=== PATIENT | male | born 1985 | race Caucasian/White ===

== ENCOUNTER 2017-07-24 22:51 | Inpatient (IN) | payer MEDICARE, MEDICAID ==
[2017-07-25 01:07] LABS: #Eosinphils 0.1 thou/uL (0.0-0.7); #Lymphocytes 0.8 thou/uL (1.20-3.40); #Monocytes 0.4 thou/uL (0.11-0.59); #Neutrophils 3.1 thou/uL (1.40-6.50); %Basophils 0.4 % (0.0-1.0); %Eosinophils 1.9 % (0.0-10.0); %Lymphocytes 17.9 % (21.0-51.0); %Monocytes 9.2 % (0.0-10.0); %Neutrophils 70.6 % (42.0-75.0); Hemoglobin 7.4 g/dL (14.0-18.0); Mean Corpuscular HGB CONC 32.8 g/dL (32.0-36.0); Mean Corpuscular Hemoglobin 31.7 pg (27.0-31.0); Mean Corpuscular Volume 96.9 fl (80.0-94.0); Mean Platelet Volume 7.3 fL (7.4-10.4); Platelet Count 193 thou/uL (130-400); RBC Distribution Width 15.4 % (11.5-14.5); Red Blood Cell (RBC) Count 2.33 mill/uL (4.70-6.10); White Blood Cell (WBC) Count 4.4 thou/uL (4.8-10.8)
[2017-07-25 01:28] LABS: ALT (SGPT) 23 U/L (8-55); AST (SGOT) 19 U/L (5-34); Albumin 3.2 g/dL (3.5-5.0); Alkaline Phosphatase 57 U/L (40-150); Anion Gap 7 mmol/L (10-20); BUN (Urea Nitrogen) 21 mg/dL (8.9-20.6); Bilirubin, Total 0.6 mg/dL (0.2-1.2); Calc. Creatinine Clearance 0 mL/min (70-130); Calcium 8.2 mg/dL (7.8-10.44); Carbon Dioxide 37 mmol/L (22-29); Chloride 99 mmol/L (98-107); Estimated GFR-MDRD 17; Globulin 3.5 g/dL (2.4-3.5); Glucose 98 mg/dL (70-105); Potassium 3.6 mmol/L (3.5-5.1); Protein, Total 6.7 g/dL (6.0-8.3); Sodium 139 mmol/L (136-145)
[2017-07-25] MEDS ORDERED: Gentamicin Sulfate 80 MG in Premix Bag 1 BAG IVPB SCH (07:30)
--- NOTE | 2017-07-25 08:00 | HP ---
HISTORY OF PRESENT ILLNESS: Liam Carrillo is a 31-year-old male patient, end-stage renal disease wi th lymphedema praecox, chronic lymphedema of both lower extremities, scrotum. I provided a right Cim katiuska fistula years ago functions for dialysis access. He is followed by Dr. Bonner. He was recently hos pitalized at [facility], discharged 9 days ago, hospitalized there 1 week for damion teremia Streptococcus. The patient states the source he was informed was his left lower extremity th at he injured on ileana stand working on an automobile. This is markedly improved. He is receiving md ncomycin with dialysis for the next few weeks. The patient presents to the emergency room because of complaints of right upper quadrant pain. He tay s never had such pain before. Pain started 2 days ago. He has not had any nausea or vomiting. CAT scan of abdomen and pelvis obtained revealed some mild to moderate constipation, but findings were th at of some questionable air focus in the scrotum. My personal view of the CAT scan reveals that thes e air pockets are from skin folds. Clinically, exam there is no evidence of necrotizing fasciitis. The patient has no scrotal complaints. He has chronic edema from his lymphedema in his scrotum, but there are no clinical changes per the patient nor per my exam. The patient's gallbladder is normal o n CAT scan, his liver function tests are normal. Patient's lactate is normal. My plan is to obtain a gallbladder ultrasound, give him MiraLax. Apparently he has been admitted to the medical service for pneumonia, although the patient states he has had a mild cough, but nonproduc tive. ALLERGIES: PENICILLIN. MEDICATIONS: Hydrocodone 10/325 p.r.n. He is on vancomycin with hemodialysis. He has received gent amicin and Levaquin this hospitalization. At home, he is on Midodrine, Protonix, Ecotrin. PAST SURGICAL HISTORY: Right Esteban fistula. PAST MEDICAL HISTORY: End-stage renal disease on dialysis Monday, Monday and Monday, followed Dr. Bonner, lymphedema praecox, congenital. His family also has the same condition, GERD, hypertension, hi story of diabetes. 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 He is ambulatory. PHYSICAL EXAMINATION: VITAL SIGNS: Blood pressure 100/70, respiratory rate 20, heart rate 78. HEENT: Unremarkable. LUNGS: Clear to auscultation. CARDIAC: Regular rate and rhythm without murmur or gallop. ABDOMEN: Soft, tenderness in right upper quadrant with mild guarding. There are no peritoneal signs . EXTREMITIES: Lymphedema praecox, edema, lymphedema, chronic feet to groins. His scrotum is massivel y enlarged, this is chronic. There is no evidence of cellulitis. There is no evidence of fluctuance . There is no evidence of emphysema subcu in the left or right scrotum. He has a skin tear in his l eft leg without cellulitis. ASSESSMENT AND PLAN: 1. The scrotal findings on CAT scan are probably not clinically significant. I do not think surgica l intervention is necessary. 2. Right upper quadrant pain. We will obtain a gallbladder ultrasound. Await these results. 3. Lymphedema praecox. 4. Chronic scrotal edema, no evidence of acute infection. Pending his gallbladder ultrasound, the patient could be given his renal diet. 5. End-stage renal disease. Consult Dr. Bonner for maintenance dialysis.
[2017-07-25 09:12] VITALS: BMI 45.6
[2017-07-25] MEDS ORDERED: HYDROcodone/Acetaminophen 10/325 mg Tablet PO PRN (10:36)
--- NOTE | 2017-07-25 10:48 | ULT ---
RIGHT UPPER QUADRANT ULTRASOUND: Date: 07/25/17 COMPARISON: None. HISTORY: Right upper quadrant pain. TECHNIQUE: Multiplanar Alvarez scale sonographic imaging of the right upper quadrant provided. FINDINGS: The imaged pancreas is grossly unremarkable. The distal body and tail are obscured by bowel gas. The hepatic parenchyma is heterogeneous and echogenic suggesting hepatocellular disease, nonspecific. The chemical laboratory technician reports a negative Yap's sign. No gallbladder wall thickening or pericholecystic f luid. No gallstones or gallbladder sludge noted. Main portal vein is dilated, measuring 1.6 cm. CBD measures 5.0 mm, within normal limits. The right k idney could not be visualized on this examination and may be absent. The liver appears enlarged, measuring up to 25 cm. IMPRESSION: 1. The hepatic parenchyma is heterogeneous and echogenic, and the liver is enlarged, suggesting hepa tocellular disease. 2. Nonvisualization of right kidney. 3. No evidence for cholelithiasis, cholecystitis, or biliary dilatation. POS: [facility]
[2017-07-25] MEDS ORDERED: Ondansetron HCl/PF 4 MG/2 ML Vial IVP PRN (10:50)
[2017-07-25] MEDS ORDERED: Ondansetron ODT 4 MG TAB PO PRN (10:50)
[2017-07-25] MEDS ORDERED: Acetaminophen 325 MG TAB PO PRN (10:50)
[2017-07-25] MEDS ORDERED: Polyethylene Glycol 3350 17 GM Packet PO SCH (11:00)
--- NOTE | 2017-07-25 12:15 | CT ---
PRELIMINARY REPORT/[facility]/EMERGENTY AFTER-HOURS PROCEDURE CT Abdomen and Pelvis With Intravenous Contrast EXAM DATE/TIME: Exam ordered 07/25/2017 2:54 AM CLINICAL HISTORY: 31 years old, male; Pain; Abdominal pain; Patient HX: 31 yo m presents to ed with abdominal pain. Pt report pain in the rlq of his abdomen. Pt denies pain in testicles, denies painful urination, and den ies hematuria. Pt reports he "makes minimal urine". Pt reports normal bm, normal eating. Pt reports no history of surgeries, still has his appendix. Pt reports he is currently on dialysis, pt r eports history of chronic lymphedema. Pt was seen at the [facility] a [facility] ago for a blood infection, but ca use was unknown TECHNIQUE: Axial computed tomography images of the abdomen and pelvis with intravenous contrast. Coronal reforma tted images were created and reviewed. COMPARISON: No relevant prior studies available. FINDINGS: Lung bases: Patchy airspace opacity in the right lower lobe consistent with pneumonia, potentially se condary to aspiration. Pleural space: Small bilateral pleural effusions. ABDOMEN: Liver: Unremarkable. No mass. Gallbladder and bile ducts: Unremarkable. No calcified stones. No ductal dilation. Pancreas: Unremarkable. No mass. No ductal dilation. Spleen: Splenomegaly. Adrenals: Unremarkable. No mass. Kidneys and ureters: Kidneys are markedly atrophic. No hydronephrosis. Stomach and bowel: No bowel wall thickening or intestinal obstruction. PELVIS: Appendix: Appendix not visualized. No evidence of appendicitis. Bladder: Unremarkable. No mass. Reproductive: There is massive enlargement of the visualized portion of the scrotum secondary to a la rge amount of dense edema. There is a short tract of gas extending from the lateral skin surface of t he scrotum into the scrotum about 2 cm, of uncertain etiology. ABDOMEN and PELVIS: Intraperitoneal space: Unremarkable. No free air. No significant fluid collection. Bones/joints: Renal osteodystrophy. No fracture. No dislocation. Soft tissues: Diffuse subcutaneous edema. Vasculature: Unremarkable. No abdominal aortic aneurysm. Lymph nodes: Mild bilateral inguinal and iliac chain lymphadenopathy. IMPRESSION: 1. There is massive enlargement of the visualized portion of the scrotum secondary to a large amount of dense edema. There is a short tract of gas extending from the lateral skin surface of the scrotum into the scrotum about 2 cm, of uncertain etiology. This may be due to a skin indentation. Fistula or necrotizing fasciitis unlikely but not excluded. 2. Splenomegaly. 3. Mild bilateral inguinal and iliac chain lymphadenopathy. 4. Small bilateral pleural effusions. 5. Patchy airspace opacity in the right lower lobe consistent with pneumonia, potentially secondary t o aspiration. 6. Diffuse subcutaneous edema. Thank you for allowing us to participate in the care of your patient. Dictated and Authenticated by: Bryan Louis MD 07/25/2017 4:35 AM Central Time ([place] & [place]) FINAL REPORT EMERGENT AFTER HOURS CT ABDOMEN AND PELVIS WITH IV CONTRAST: DATE: 02/24/18. HISTORY: Right lower quadrant abdominal pain. COMPARISON: 09/03/16. IMPRESSION: 1. Very small bilateral pleural effusions with parenchymal airspace opacities seen at each lung base which may be related to either pneumonia or aspiration pneumonitis. 2. Hepatosplenomegaly with the liver measuring 22.7 cm in craniocaudal dimensions and the spleen jeison suring 19 cm in craniocaudal dimensions. This is unchanged from the prior exam in 2017. 3. Marked atrophy of each kidney. 4. Mild periportal edema. There is also significant prominence of the iliac veins with distention o f the IVC and portal veins, also noted on prior exam. 5. Extensive edema with massive enlargement of the soft tissues of the scrotum with subcutaneous cyril ma seen diffusely about the abdomen and pelvis, much more marked involving the scrotal soft tissues. A focus of gas is seen in the left lateral aspect of the scrotal soft tissues. As noted on the prel iminary report, this could be related to a small fistula, laceration, possibly indentation in the ski n. Necrotizing fasciitis is felt less likely but is a possibility. 6. Lymphadenopathy along the inguinal regions bilaterally as well as along each iliac chain. Associ ated lymphadenopathy in the aortocaval region is noted, primarily related to increased number of lymp h nodes. 7. Probable mild varices. 8. Diffuse sclerosis of the osseous structures unchanged from prior exam. 9. Findings are similar to a prior study in 2017. 10. Findings are in agreement with the preliminary report by [facility]. POS: [facility]
[2017-07-25] MEDS ORDERED: Iopamidol 370 76% 50 ML VIAL FS ONE (13:55)
[2017-07-25] MEDS ORDERED: ISOVUE-370 76%-LOCM 1 ML ONE (13:55)
--- NOTE | 2017-07-25 14:12 | HP ---
PRIMARY CARE PHYSICIAN: Dr. Duarte Castro DATE OF ADMISSION: 07/25/2017 TIME OF SERVICE: 10:15 CHIEF COMPLAINT: Abdominal pain, right upper quadrant. HISTORY OF PRESENT ILLNESS: Mr. Carrillo is a 31-year-old male with history of end-stage renal disease , severe obesity and lymphedema and hypertension who presents to the emergency department for right u pper quadrant pain. He has been having the pain in the right upper quadrant area for about 2 days. No nausea or vomiting. Not related to eating. It kind of comes and goes and is certainly worse with palpation. Emergency Department, labs were normal for the patient's with end-stage renal disease, CT scan was do ne that showed possible air in the scrotum and bilateral right greater than left, airspace opacity co nsistent with pneumonia, possible aspiration and we were subsequently called for admission. The patient denies any cough or sputum production. No fevers or chills. He was recently admitted to [facility] for about 5-6 days last week for celluliti s and Streptococcal bacteremia. He has been getting IV vancomycin with his dialysis for treatment of that. No current complaints. He has not missed any dialysis treatments. He did undergo dialysis yesterday on his normal Monday, Monday, Monday schedule for a full 6 hours without difficulty. PAST MEDICAL HISTORY: 1. Severe obesity. 2. Chronic bilateral extremity lymphedema. 3. End-stage renal disease. 4. Hypertension. 5. Status post right upper extremity fistula creation. 6. Hemodialysis Monday, Monday, and Monday. 7. Gastroesophageal reflux disease. 8. Hypertension. PAST SURGICAL HISTORY: Include right upper extremity fistula creation. HOME MEDICATIONS: [place] 10 mg 10/325 p.o. t.i.d. p.r.n. with vancomycin with hemodialysis, Midodrine 5 mg p.o. q.a.m. with hemodialysis. He was recently prescribed this, and has picked it up, but has not actually started it. Renvela 4 tabs p.o. b.i.d. with meals. ALLERGIES: PENICILLIN causes a rash and swelling. FAMILY HISTORY: Negative for clotting or bleeding disorder, no immune dysfunction. SOCIAL HISTORY: Negative for habits x3. REVIEW OF SYSTEMS: All systems reviewed and negative except as per HPI. He is currently not having abdominal pain. PHYSICAL EXAMINATION: VITAL SIGNS: Temperature 97.1, pulse 105, blood pressure 116/69, respiratory rate 16, 94% on room ai r. GENERAL: He is awake. He is alert. He is oriented x3, well-developed, well-nourished, obese white male, appears to be in no acute distress. HEENT: Normocephalic, atraumatic. Pupils equal, reactive bilaterally, mucosa moist. No visible les ions, no thrush. NECK: Supple, without lymphadenopathy, JVD or thyromegaly. LUNGS: Clear. CARDIOVASCULAR: Heart tones are regular, slightly tachycardic. He has no audible murmurs. ABDOMEN: Soft, it is nontender. There is no rebound, rigidity or guarding. He has no Yap sign. He had good bowel sounds in all 4 quadrants. There is some abdominal wall edema. He has hepatosple nomegaly. EXTREMITIES: Show severe lymphedema to about the level of the belly button. SKIN: Otherwise, warm, moist, well perfused. He has some weepage, but no frankly open wounds. Ther e is no tenderness and minimal erythema. He has brisk capillary refill. Skin is otherwise warm, mimi st and well perfused. The fistula has good bruit and palpable thrill. MUSCULOSKELETAL: Normal to inspection. No inflamed joints. NEUROLOGIC: Cranial nerves II-XII are grossly intact. No focal deficits. He does have a speech imp ediment, but is not dysarthria. LABORATORY DATA: Sodium 139, potassium 3.6, chloride 99, bicarbonate 27, BUN 21, creatinine 4.10, gl ucose 48, calcium normal. Lactic acid normal at 0.8. Liver functions completely within normal limit s. CBC showed a white count of 7.4, hemoglobin 7.4, hematocrit 22.6, platelet count 103,000. Last hemog lobin here was 9.7 back in 09/2016. RADIOGRAPHIC STUDIES: CT scan of the abdomen and pelvis showed enlarged liver consistent with hepato cellular disease, splenomegaly, no evidence of gallbladder issues, severe edema of the subcutaneous t issues and possible air versus a skin fold at the scrotum level. He had bibasilar airspace opacities seen and honeycombing in the lung. Ultrasound of the abdomen/gallbladder was negative for gallbladder disease. ASSESSMENT AND PLAN: 1. Right upper quadrant abdominal pain: Currently resolved. Place him on MiraLax. CT scan did men tion some moderate amount of stool. We will watch him through the course of the day reevaluated this afternoon. If he is doing better, may let him go home on antibiotics. 2. Possible aspiration pneumonia versus pulmonary fluid. The patient did have dialysis as scheduled yesterday. He has no fevers, minimal cough. Recently treated with antibiotics. He is on vancomyci n, oral anaerobes are great. I will continue levofloxacin at present. His dosed renally with 750 mg in the ER and 500 mg q.48 hours. 3. End-stage renal disease on hemodialysis, tolerating well. Takes midodrine with treatments. 4. Hypertension, not on treatment at present.
[2017-07-25] MEDS ORDERED: Epoetin (ESRD) 20,000 UNITS/ML SC SCH (18:00)
[2017-07-25] MEDS ORDERED: Famotidine 20 MG TAB PO SCH ×2 (21:00)
--- NOTE | 2017-07-25 21:58 | CON ---
DATE OF CONSULTATION: 07/25/2017 HISTORY OF PRESENT ILLNESS: Mr. Carrillo is a 31-year-old white male who initially presented with abdo nneka pain. He was evaluated by Dr. Balbuena. The feeling is that he has no acute abdomen. He also h as scrotal edema which is noted which is chronic in nature. The finally CAT scan probably not clinic ally significant. He is also being treated for a possibility of ? pneumonia. We are now being consulted for his maintenance hemodialysis. His regular hemodialysis is Monday, Mon, and Monday. He has no other complaints. REVIEW OF SYSTEMS: No fever. Positive for abdominal discomfort. No nausea, no vomiting, no diarrhe a, no constipation, no headache, no diplopia, no gross hematuria and positive for chronic leg edema. Positive for chronic scrotal swelling. Appetite and energy level is fair. No headache. MEDICATIONS: Currently on Pepcid 20 mg q.p.m., Levaquin 500 mg every other day, midodrine 5 mg q.a.m ., Zofran 4 mg q.6 hours p.r.n., Renvela 800 mg 4 tabs t.i.d. with meals, and MiraLax 17 grams p.o. d aily. PAST MEDICAL HISTORY: 1. ESRD, currently on maintenance hemodialysis - Monday, Monday, Monday, 6 hours duration. 2. Chronic lymphedema secondary to lymphedema praecox. 3. History of noncompliance. PAST SURGICAL HISTORY: 1. Status post CT scan-guided renal biopsy. 2. Status post AV fistula placement. 3. Status post cuffed hemodialysis catheter placement. ALLERGIES: None. TRAUMA: None. IMMUNIZATIONS: Up to date. HOSPITALIZATIONS: Please see past medical history. SOCIAL HISTORY: The patient lives in [place]. He is single and lives alone. He has 2 children. N o drug abuse. Status post multiple blood transfusions. Education 10th grade. He works part-time [employer]. Active lifestyle. FAMILY HISTORY: Positive family history of ESRD. PHYSICAL EXAMINATION: VITAL SIGNS: Blood pressure is noted at 96/57 with a heart rate of 79, respiratory rate 18, temperat ure 98.2, and pulse ox 92%. GENERAL: Noted to be awake, supine, comfortable, obese, not in distress. SKIN: Adequate turgor. HEENT: He has slightly pale conjunctivae, anicteric sclerae. NECK: No neck mass, no carotid bruits, no JVD. CHEST: No deformities. LUNGS: Decreased breath sounds. HEART: Normal sinus rhythm. Grade 2/6 systolic murmur, no gallops, no rubs. ABDOMEN: Globular, soft, nontender, no masses. EXTREMITIES: +4 bilateral pitting edema. GENITALIA: Positive for scrotal swelling. LABORATORY DATA: Of 07/25/2017, white count 4.4, hemoglobin 7.4, sodium 139, potassium 3.6, chloride 99, carbon dioxide 37, BUN is 21, creatinine 4.1, glucose 98, calcium 8.2, AST 19, ALT 23, albumin 3 .2. ASSESSMENT AND PLAN: 1. Scrotal swelling - chronic in nature. No surgical intervention, Surgery has evaluated this. 2. End-stage renal disease, stable. We will continue current maintenance hemodialysis. While at [facility], we will do a 4-hour hemodialysis treatment with this patient. Fluid removal only as tole rated. 3. Hypocalcemia - much improved with Tums. 4. Anemia - start Epogen - 69211 units subcu every week. P.r.n. blood transfusion. 5. Patient recently was seen at the [facility] and he was septic at that time. He received IV vancomycin. He is still receiving as an outpatient IV vancomycin. For this reason, I would probably check a van comycin level tomorrow.
[2017-07-25] MEDS: Sevelamer Carbonate 800 MG TAB PO SCH (22:07)
--- NOTE | 2017-07-25 23:13 | PRG ---
DATE OF SERVICE: 07/25/2017 His ultrasound was normal. His liver is probably congested accounting for his right upper quadrant t enderness. Further biliary workup is not warranted. At this point, I will see him as needed. Neena alonzo call if further involvement in his care is required.
[2017-07-26 04:43] LABS: #Eosinphils 0.1 thou/uL (0.0-0.7); #Lymphocytes 0.8 thou/uL (1.20-3.40); #Monocytes 0.4 thou/uL (0.11-0.59); #Neutrophils 2.1 thou/uL (1.40-6.50); %Basophils 0.3 % (0.0-1.0); %Lymphocytes 23.4 % (21.0-51.0); %Monocytes 12.8 % (0.0-10.0); %Neutrophils 61.5 % (42.0-75.0); Hemoglobin 6.9 g/dL (14.0-18.0); Mean Corpuscular HGB CONC 32.4 g/dL (32.0-36.0); Mean Corpuscular Hemoglobin 31.6 pg (27.0-31.0); Mean Corpuscular Volume 97.6 fl (80.0-94.0); Mean Platelet Volume 7.9 fL (7.4-10.4); Platelet Count 172 thou/uL (130-400); RBC Distribution Width 15.2 % (11.5-14.5); Red Blood Cell (RBC) Count 2.18 mill/uL (4.70-6.10); White Blood Cell (WBC) Count 3.4 thou/uL (4.8-10.8)
[2017-07-26 05:04] VITALS: BP 107/57; TEMP 98.1
[2017-07-26 05:04] LABS: Vancomycin, Peak 15.3 ug/mL (20.0-40.0)
[2017-07-26 05:06] LABS: Anion Gap 14 mmol/L (10-20); BUN (Urea Nitrogen) 30 mg/dL (8.9-20.6); Calc. Creatinine Clearance 38 mL/min (70-130); Calcium 8.2 mg/dL (7.8-10.44); Carbon Dioxide 30 mmol/L (22-29); Chloride 98 mmol/L (98-107); Estimated GFR-MDRD 12; Glucose 95 mg/dL (70-105); Sodium 138 mmol/L (136-145)
[2017-07-26 06:49] LABS: Magnesium 2.1 mg/dL (1.6-2.6)
[2017-07-26] MEDS: Sevelamer Carbonate 800 MG TAB PO SCH (07:50)
[2017-07-26] MEDS ORDERED: Polyethylene Glycol 3350 17 GM Packet PO SCH (09:00)
[2017-07-26] MEDS ORDERED: Midodrine HCl 5 MG TAB PO SCH (09:00)
[2017-07-26] MEDS ORDERED: Heparin 10,000 UNITS/ 10 ML VIAL ONE (09:00)
[2017-07-26 10:31] LABS: HBSAg Index 0.18 S/CO (0-0.99); Hep B Core Total Ab Non-Reactive (NonReactive); Hep B Core Total Index 0.06 S/CO (0-0.79); Hep B Surf Ag Non-Reactive S/CO (NonReactive)
--- NOTE | 2017-07-26 11:30 | DIS ---
DATE OF ADMISSION: 07/25/2017 DATE OF DISCHARGE: 07/26/2017 PRIMARY CARE PHYSICIAN: Duarte Castro M.D. DISCHARGE DIAGNOSES: 1. Right upper quadrant abdominal pain, resolved, not due to gallbladder system, likely hepatic flako estion. 2. Bilateral lower lobe opacities, possible pneumonia. The patient recently in a health facility, h ealthcare-associated pneumonia, present on admission. 3. End-stage renal disease, on hemodialysis. 4. Lymphedema in the bilateral lower extremities. 5. Hypertension, not currently needing treatment. 6. Hypotension associated with hemodialysis. 7. Anemia of renal disease. CONSULTATIONS: 1. Dr. Bonner, Renal. 2. Dr. Balbuena with General Surgery. PROCEDURES: Transfuse 1 unit of packed red blood cells with hemodialysis today. HISTORY AND PHYSICAL: Mr. Carrillo is a 31-year-old male, recently admitted over at [facility] for sepsis and streptococcal cellulitis with bacteremia. He had been doing well, but de veloped right upper quadrant pain, so presented to the emergency department. On evaluation there, la bs were fairly normal. A CT scan of the abdomen during evaluation revealed bilateral lower lobe opac ities, possible air in the scrotum, and we were called were admit. HOSPITAL COURSE: The patient was seen and examined by ak. Labs were normal. He was asymptomatic. He had no evidence of scrotal infection and had no pain. He was placed on observation overnight. He was put on Levaquin intravenously in the emergency department and continued on oral dosing q.48 hour s per renal dosing. Overnight, he did well. No further pain. His hemoglobin was low due to needing dialysis and anemia of chronic disease. He underwent dialysis this morning. He received a unit of packed red blood cell s and was otherwise stable for discharge. PHYSICAL EXAMINATION: The patient was seen and examined on the day of discharge. Discharge plan and disposition were discussed with the patient [id number] at the bedside and dialysis. DISCHARGE MEDICATIONS: 1. Midodrine 5 mg p.o. q.a.m. on dialysis days. 2. Levofloxacin 500 mg p.o. q.48 hours after dialysis or hemodialysis days, starting today, and he h as 3 more doses. 3. [place] as he was taking prior to admit. 4. MiraLax 17 grams p.o. daily recommended. 5. Renvela 800 mg tablets 4 tablets p.o. b.i.d. before meals. 6. Erythropoietin 12,000 units weekly with dialysis. DISCHARGE CONDITION: Stable. DISPOSITION: Being discharged home in private vehicle. DISCHARGE DIET: Heart healthy, renal diet recommended. DISCHARGE ACTIVITY: As tolerated. FOLLOWUP APPOINTMENTS: 1. Primary care physician within a week. 2. Dr. Bonner per his clinic. He has hemodialysis on Monday.
[2017-07-26 12:17] LABS: Hep B Surf AB Reactive (NonReactive)
[2017-07-26 12:18] LABS: HBSAB Concentration 17.06 mIU/mL
--- NOTE | 2017-07-26 13:19 | PRG ---
DATE OF SERVICE: 07/26/2017 SUBJECTIVE: Mr. Carrillo is a 31-year-old white male with ESRD and we were consulted for his maintenan ce hemodialysis. He was admitted for abdominal pain. This was evaluated by surgery in the feeling t hat this is not an acute abdomen. He is feeling better this morning. He is undergoing dialysis. I am at the bedside, supervising his dialysis. He voices no new complaints. PHYSICAL EXAMINATION: VITAL SIGNS: Blood pressure is 107/57, heart rate 90, respiratory rate 18, temperature 98.1, and pul se ox 98%. GENERAL: Awake, alert, supine, comfortable, not in distress. The patient is obese. SKIN: Adequate turgor. HEENT: Pale conjunctivae, anicteric sclerae. NECK: No neck mass, no carotid bruits, no JVD. CHEST: No deformities. LUNGS: Clear breath sounds. No wheezing, no crackles. HEART: Normal sinus rhythm. No murmur, no gallops, or rubs. ABDOMEN: Globular, soft, nontender. EXTREMITIES: +4 edema. MEDICATIONS: 07/26/2017 was reviewed. LABORATORY DATA: On 07/26/2017 - white count 3.4, hemoglobin 6.9. Sodium 138, potassium 4, chloride 98, carbon dioxide 30, BUN 30, creatinine 5.46, calcium 8.2, and magnesium 2.1. ASSESSMENT AND PLAN: 1. End-stage renal disease, stable. We will continue current hemodialysis regimen. He undergoes a 6-hour hemodialysis. Fluid removal only as tolerated. 2. Anemia. Epogen started 12,000 units subcutaneously every week. Please note that we have also be giving him 1 unit of packed RBC with dialysis. After dialysis, agree with planned discharge.
== END 2017-07-26 14:56 | disposition home or self-care (01) | DRG 177 ==
LOC: ERS 22:51 → T4-A 07-25 08:14
PROVIDERS: ADMIT Internal Medicine Infectious Disease; ATTEND Internal Medicine Infectious Disease
DX: J69.0 Pneumonitis due to inhalation of food and vomit (principal); N18.6 End stage renal disease; I12.0 Hypertensive chronic kidney disease with stage 5 chronic kidney disease or end stage renal disease; Z68.42 Body mass index [BMI] 45.0-49.9, adult; R78.81 Bacteremia; K76.1 Chronic passive congestion of liver; Z99.2 Dependence on renal dialysis; D63.1 Anemia in chronic kidney disease; I89.0 Lymphedema, not elsewhere classified; E66.01 Morbid (severe) obesity due to excess calories; I95.3 Hypotension of hemodialysis; E83.51 Hypocalcemia
CPT/HCPCS: 36415; 36430; 74177; 76705; 80048; 80053; 80202; 83605; 83735; 85025; 86704; 86706; 86850; 86900; 86901; 87040; 87340; 96365; 96368; 96372; J1580; J1644; J1956; J3370; P9016; Q4081

== ENCOUNTER 2017-12-20 18:37 | Inpatient (IN) | payer MEDICARE, MEDICAID ==
[2017-12-20 19:34] LABS: #Eosinphils 0.5 thou/uL (0.0-0.7); #Lymphocytes 1.1 thou/uL (1.20-3.40); #Monocytes 0.4 thou/uL (0.11-0.59); #Neutrophils 4.6 thou/uL (1.40-6.50); %Basophils 0.3 % (0.0-1.0); %Eosinophils 7.3 % (0.0-10.0); %Lymphocytes 17.1 % (21.0-51.0); %Monocytes 6.1 % (0.0-10.0); %Neutrophils 69.2 % (42.0-75.0); Hemoglobin 8.2 g/dL (14.0-18.0); Mean Corpuscular HGB CONC 31.8 g/dL (32.0-36.0); Mean Corpuscular Hemoglobin 30.1 pg (27.0-31.0); Mean Corpuscular Volume 94.7 fL (78.0-98.0); Mean Platelet Volume 7.5 fL (7.4-10.4); Platelet Count 293 thou/uL (130-400); RBC Distribution Width 14.5 % (11.5-14.5); White Blood Cell (WBC) Count 6.6 thou/uL (4.8-10.8)
[2017-12-20 19:55] LABS: ALT (SGPT) 11 U/L (8-55); AST (SGOT) 20 U/L (5-34); Albumin 2.5 g/dL (3.5-5.0); Alkaline Phosphatase 53 U/L (40-150); Anion Gap 16 mmol/L (10-20); BUN (Urea Nitrogen) 51 mg/dL (8.9-20.6); Bilirubin, Total 0.8 mg/dL (0.2-1.2); Calc. Creatinine Clearance 0 mL/min (70-130); Calcium 8.5 mg/dL (7.8-10.44); Carbon Dioxide 27 mmol/L (22-29); Chloride 100 mmol/L (98-107); Estimated GFR-MDRD 8; Glucose 82 mg/dL (70-105); Potassium 6.2 mmol/L (3.5-5.1); Protein, Total 7.5 g/dL (6.0-8.3); Sodium 137 mmol/L (136-145)
[2017-12-20 23:19] VITALS: BMI 74.9
[2017-12-21] MEDS ORDERED: Bisacodyl 5 MG TAB PO PRN (01:31)
[2017-12-21] MEDS ORDERED: Ondansetron ODT 4 MG TAB PO PRN (01:31)
[2017-12-21] MEDS ORDERED: Acetaminophen 325 MG TAB PO PRN (01:31)
[2017-12-21] MEDS ORDERED: Ondansetron PF 4 MG/2 ML Vial IVP PRN (01:31)
[2017-12-21] MEDS ORDERED: Cyclobenzaprine 10 MG TAB PO PRN (01:36)
[2017-12-21 04:52] LABS: #Eosinphils 0.5 thou/uL (0.0-0.7); #Lymphocytes 0.9 thou/uL (1.20-3.40); #Monocytes 0.6 thou/uL (0.11-0.59); #Neutrophils 5.6 thou/uL (1.40-6.50); %Basophils 0.1 % (0.0-1.0); %Eosinophils 6.8 % (0.0-10.0); %Lymphocytes 11.7 % (21.0-51.0); %Monocytes 7.5 % (0.0-10.0); %Neutrophils 73.8 % (42.0-75.0); Mean Corpuscular HGB CONC 31.8 g/dL (32.0-36.0); Mean Corpuscular Hemoglobin 30.2 pg (27.0-31.0); Mean Corpuscular Volume 94.9 fL (78.0-98.0); Mean Platelet Volume 7.2 fL (7.4-10.4); Platelet Count 266 thou/uL (130-400); RBC Distribution Width 14.2 % (11.5-14.5); Red Blood Cell (RBC) Count 2.32 mill/uL (4.70-6.10); White Blood Cell (WBC) Count 7.6 thou/uL (4.8-10.8)
[2017-12-21 05:09] LABS: Anion Gap 15 mmol/L (10-20); BUN (Urea Nitrogen) 55 mg/dL (8.9-20.6); Calc. Creatinine Clearance 39 mL/min (70-130); Calcium 8.1 mg/dL (7.8-10.44); Carbon Dioxide 27 mmol/L (22-29); Chloride 101 mmol/L (98-107); Estimated GFR-MDRD 7; Glucose 93 mg/dL (70-105); Potassium 5.8 mmol/L (3.5-5.1); Sodium 137 mmol/L (136-145)
[2017-12-21 05:16] LABS: Iron Binding Capacity, Total 120 mcg/dL (261-462)
[2017-12-21 05:17] LABS: Iron 42 ug/dL (65-175)
[2017-12-21 07:02] LABS: Folate (Folic Acid) 2.8 ng/mL (7.0-31.4)
--- NOTE | 2017-12-21 07:17 | HP ---
CHIEF COMPLAINT: End-stage renal disease and anemia, transferred. HISTORY OF PRESENT ILLNESS: This is a 32-year-old male with past medical history of severe obesity, chronic bilateral lower extremity lymphedema, end- stage renal disease on hemodialysis, hypertension, status post right upper extremity fistula, GERD, hypertension, presenting with chief complaint of having fluid in his legs, difficulty with ambulation and shortness of breath. Per the patient a week prior to this admission, he received hemodialysis on the Monday prior to this admission and before the hemodialysis, patient stated that he had not been able to get his hemodialysis per his scheduled days because his fistula had malfunctioned. Per the patient, the fistula was diagnosed and fixed and he was able to receive dialysis on the Monday, which was 12/15/2017. However, the patient missed dialysis on Monday and on Monday, the patient was supposed to receive dialysis, the patient stated that he cannot really walk because of the fluid has built up in his leg and he was not able to even feet in his car; therefore, patient also missed dialysis on Monday. The patient was then having difficulties with his breathing with ambulation and things were getting very difficult for him. Therefore, 911 was called and patient was sent to [facility]. In at [facility], the patient was found to have abnormal labs. The patient was then transferred to our ED to undergo hemodialysis. In the ED, the patient's global implementation manager, Dr. Bonner was consulted and arrangements were made for the patient to be admitted, so the patient can be able to get dialysis. REVIEW OF SYSTEMS: Positive for shortness of breath, difficulty with ambulation. Otherwise, as documented in HPI. All other systems were reviewed and are negative. PAST MEDICAL HISTORY: 1. Severe obesity, chronic bilateral extremity lymphedema which is inherited. 2. End-stage renal disease on hemodialysis on Mondays, Wednesdays, and Fridays. 3. Hypertension. 4. Bilateral lower extremity cellulitis and abscesses. 5. GERD. 6. Hypertension. 7. Status post right upper extremity fistula creation. PAST SURGICAL HISTORY: AV fistula, history of right subclavian dialysis catheter. PSYCHIATRIC HISTORY: No psych history. SOCIAL HISTORY: The patient is a former tobacco smoker. The patient denies any illicit drug use. The patient denies any alcohol use. FAMILY HISTORY: The patient's family has inheritable lymphedema. The patient states that mom had lymphedema and his siblings also had lymphedema. KNOWN ALLERGIES: PENICILLINS. MEDICATIONS: The patient is on Sevelamer 800 mg, cephalexin 500 mg, midodrine 5 mg, cyclobenzaprine 10 mg, doxycycline 100 mg, pantoprazole 40 mg, fludrocortisone 0.1 mg, Nitro-Bid. PHYSICAL EXAMINATION: VITAL SIGNS: Blood pressure 105/65, pulse of 105, respiratory rate of 20, temperature of 98.8. GENERAL: The patient is lying in bed, does not appear to be in any acute distress. The patient is breathing without any difficulty. At this time, patient is able to speak in full sentences. The patient is morbidly obese, very pleasant. HEENT: Normocephalic, atraumatic. Pupils are equal, round, and reactive to light. Extraocular movements are intact. No scleral icterus. No conjunctival pallor. NECK: Full range of motion. Trachea is midline. No JVD. RESPIRATORY: There are mild crackles that can be appreciated at the lower lobes bilaterally, at the anterior lung vasquez is clear to auscultation. No wheezing appreciated. CARDIOVASCULAR: Positive S1, S2, regular rate and rhythm. No murmurs, no gallops, no rubs appreciated. ABDOMEN: Obese abdomen. Positive ascitic fluid. There is positive bowel sounds in all quadrants, no distention, no palpable masses appreciated. BACK: The patient has bilateral edema on his back. Good range of motion. EXTREMITIES: The patient has 5/5 upper extremity strength, good pulses at the radial pulses. Lower extremity, patient has severe lymphedema, nonpitting. The patient is not able to move lower extremities at this time, but however, patient states that after fluid was taken off, he is able to ambulate. Pulses is not able to be appreciated. NEUROLOGIC: Alert and oriented x3, not in acute distress. SKIN: The patient had edema at the lower extremities bilaterally, some discoloration, some abscesses and some lesions seen on the lower extremities bilaterally. The patient did have onychomycosis noted. EKG shows sinus tachycardia with a rate of 101. LABORATORY DATA: WBC 6.6, hemoglobin is 8.2, hematocrit is 25.6, platelet count is 293. Sodium 137, potassium 6.2, chloride of 100, carbon dioxide of 26 , BUN is 51, creatinine is 8.22. BNP is 426. ASSESSMENT AND PLAN: This is a 32-year-old male with significant history of end -stage renal disease on hemodialysis been admitted for: 1. Fluid overloaded state, likely due to noncompliance to his hemodialysis schedule. Per the patient, he has not been able to have dialysis as he should on Mondays, Wednesdays, and Fridays, due to #1. His fistula failing 2 weeks prior and also him not being able to fit in his car to go to dialysis. At this point, we have consulted case management. We will make the patient inpatient and try and get placement for the patient, so the patient can be able to get constant hemodialysis. We have consulted Nephrology and we are waiting for patient to receive dialysis in the a.m. 2. Normocytic anemia most likely due to chronic inflammation and underlying iron deficiency. At this point, Nephrology is on the case. We have ordered anemia panel. We will follow up on the results. The patient will benefit from IV iron and possibly epo to bring his hemoglobin up to above 8. 3. History of inherited lymphedema. We will continue patient on his current management. 4. History of hypertension. We will continue patient on his current management. 5. Deep venous thrombosis and gastrointestinal prophylaxis. [facility]
[2017-12-21] MEDS: HYDROcodone/Acetaminophen 10/325 mg Tablet PO PRN ×2 (08:40→18:01)
[2017-12-21] MEDS: Midodrine HCl 5 MG TAB PO PRN (10:11)
--- NOTE | 2017-12-21 10:54 | CON ---
DATE OF CONSULTATION: 12/21/2017 HISTORY: Mr. Carrillo is a 32-year-old white male with known history of end-stage renal disease - [facility], history of chronic leg edema secondary to lymphedema praecox. He was admitt ed due to a missed dialysis and he was also mildly hyperkalemic. At that time, he was given [place] te with lactulose. The patient was recently admitted at [facility] for septic sh ock. He received several weeks of antibiotics. In addition, he subsequently was transferred to an [facility] outside the city. He has been discharged to home. However, due to inability to ambulate the pat ient was unable to go back and forth to the dialysis unit. For that reason, he went to the ER. He i s now admitted for further management. We are now being consulted for his maintenance hemodialysis. We currently will be dialyzing this patient today and then place him back on a Monday, Monday, dialysis. He voices no new complaints today. REVIEW OF SYSTEMS: No chest pain. Positive for chronic leg edema and decreased motor strength lower extremities. No nausea, no vomiting. Appetite fair. Energy level is fair. No headache, no diplop ia, no sore throat, no fever or chills, no abdominal pain, no nausea, no vomiting, no diarrhea, no co nstipation. MEDICATIONS: Currently on [place] 10/325 q.4 hours p.r.n., Keflex 500 mg p.o. b.i.d., Flexeril 10 mg p .o. t.i.d., Vibramycin 100 mg p.o. b.i.d., Pepcid 20 mg q.a.m., Florinef 0.1 mg every day, heparin 50 00 units subcu b.i.d., midodrine 10 mg t.i.d. as needed, Zofran 4 mg q.6 hours p.r.n., Protonix 40 mg tab once daily, Renvela 800 mg 2 tabs t.i.d. with meals. PAST MEDICAL HISTORY: 1. 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 We will be continuing his , Monday hemodialysis regimen. However, he missed dialysis yesterday. For this reason, he wi ll have an extra dialysis treatment today. 2. Mild hyperkalemia, resolved. Adjust potassium bath in the dialysis. 3. History of noncompliance. 4. Chronic lymphedema secondary to lymphedema praecox. PAST SURGICAL HISTORY: 1. Status post AV fistula placement. 2. Status post CT scan guided renal biopsy. 3. Status post cuffed dialysis catheter placement. 4. Status post intubation. 5. Status post central line placement. ALLERGIES: None. TRAUMA: None. IMMUNIZATIONS: Up to date. HOSPITALIZATIONS: Please see past medical history. SOCIAL HISTORY: The patient lives in [place]. He is single and lives alone. He has 2 children. N o IV drug abuse. Status post multiple blood transfusions. Education; 10th grade. 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 Sedentary lifestyle. FAMILY HISTORY: Positive family history of ESRD. PHYSICAL EXAMINATION: VITAL SIGNS: Blood pressure 103/55, heart rate 108, respiratory rate 18, temperature 98.5, pulse ox 98%. GENERAL: Noted to be awake, alert, comfortable, not in distress. SKIN: Adequate turgor. HEENT: Pinkish conjunctivae, anicteric sclerae. NECK: No neck mass, no carotid bruits, no JVD. CHEST: No deformities. LUNGS: Clear breath sounds. HEART: Normal sinus rhythm. No murmur, no gallops, no rubs. ABDOMEN: Globular, soft, nontender, no masses. EXTREMITIES: Positive for edema. NEUROLOGIC: Awake, oriented to 3 spheres. Moving all extremities. No tremors, no asterixis, no angel lashon. LABORATORY: 12/21/2017 - White count 7.6, hemoglobin 7, sodium 137, potassium 5.8, chloride 101, car bon dioxide 27, BUN 55, creatinine 8.73, glucose 93, calcium 8.5. ASSESSMENT AND PLAN: 1. Anemia. We will transfuse 1 unit packed RBC - Epogen 10,000 units subcutaneously every week. 2. Mild hyperkalemia; hemodialysis today. 3. End-stage renal disease, stable. We will continue current Monday, Monday, Monday dialysis reg imen. Due to the missed dialysis session he will undergo a 4-hour dialysis today. Fluid removal onl y as tolerated. Recheck base met and CBC in a.m.
[2017-12-21] MEDS: Sevelamer Carbonate 800 MG TAB PO SCH ×3 (12:41→17:59)
[2017-12-21] MEDS: Heparin 5,000 UNITS/ML VIAL SC SCH ×2 (12:41→21:30)
[2017-12-21] MEDS: Famotidine 20 MG TAB PO SCH (12:41)
[2017-12-21 13:37] LABS: HBSAg Index 0.22 S/CO (0-0.99); Hep B Surf Ag Non-Reactive S/CO (NonReactive)
--- NOTE | 2017-12-21 15:10 | PDOC.PN ---
- Subjective Encounter Start Date: 12/21/17 Encounter Start Time: 07:40 Pt seen for followup re: volume overload. Reports shortness of breath. Occ cough. No fever. - Objective Resuscitation Status: Resuscitation Status FULL:Full Resuscitation MAR Reviewed: Yes Vital Signs & Weight: Vital Signs (12 hours) Temp Pulse Pulse Resp BP BP Pulse Ox 12/21/17 13:45 98 F 90 16 111/55 L 12/21/17 13:30 98 F 92 16 107/56 L 12/21/17 13:15 98.1 F 91 16 93/48 L 12/21/17 13:00 98.1 F 94 16 103/53 L 12/21/17 08:38 98.5 F 108 H 18 103/55 L 94 L 12/21/17 03:13 98.2 F 93 14 113/58 L 98 Weight Admit Weight 493 lb Weight 493 lb I&O: 12/20/17 12/21/17 12/22/17 06:59 06:59 06:59 Intake Total 350 Balance 350 Result Diagrams: 12/21/17 04:20 12/21/17 04:20 EKG Reviewed by me: Yes (Tele: sinus tachycardia) Phys Exam - Physical Examination Morbid obesity HEENT: moist MMs, sclera anicteric, oral pharynx no lesions, 2+ tonsils Neck: no nodes, no JVD, supple, full ROM Don crackles S1, s2, tachy, reg Gastrointestinal: soft, non-tender, positive bowel sounds distention Don LE lymphedema Neurological: moves all 4 limbs Psychiatric: normal affect, A&O x 3 Deviation from normal: wounds as documented Dx/Plan (1) Volume overload Code(s): E87.70 - FLUID OVERLOAD, UNSPECIFIED Status: Acute Comment: secondary to missed dialysis sessions, pt to be dialyzed (2) Wound of skin Code(s): T14.8XXA - OTHER INJURY OF UNSPECIFIED BODY REGION, INITIAL ENCOUNTER Status: Acute Comment: continue antibiotics as below; wound care consulted (3) Acquired lymphedema of leg Code(s): I89.0 - LYMPHEDEMA, NOT ELSEWHERE CLASSIFIED Status: Chronic Comment: stable (4) ESRD (end stage renal disease) Code(s): N18.6 - END STAGE RENAL DISEASE Status: Chronic Comment: HD per nephrology - Plan * . Review of Systems - Review of Systems Constitutional: negative: fever, chills, sweats, weakness, malaise Respiratory: Cough, Dry, Shortness of Breath, SOB with Excertion. negative: Hemoptysis, Pleuritic Pain, Sputum, Wheezing Cardiovascular: negative: chest pain, palpitations, orthopnea, paroxysmal nocturnal dyspnea, edema, light headedness Gastrointestinal: negative: Nausea, Vomiting, Abdominal Pain, Diarrhea, Constipation, Melena, Hematochezia Genitourinary: negative: Dysuria, Frequency, Incontinence, Hematuria, Retention Skin: Lesions Neurological: negative: Weakness, Numbness, Incoordination, Change in Speech, Confusion, Seizures - Medications/Allergies Allergies/Adverse Reactions: Allergies Allergy/AdvReac Type Severity Reaction Status Date / Time Penicillins Allergy Verified 09/27/16 10:41 Medications: Current Medications Acetaminophen (Tylenol) 650 mg PO Q4H PRN PRN Reason: Headache/Fever/Mild Pain (1-3) Hydrocodone Bitart/Acetaminophen ([place] 10/325) 1 tab PO Q4H PRN PRN Reason: Moderate to Severe Pain (6-10) Last Admin: 12/21/17 08:40 Dose: 1 tab Bisacodyl (Dulcolax) 10 mg PO DAILYPRN PRN PRN Reason: Constipation Cephalexin (Keflex) 500 mg PO BID [facility] Cyclobenzaprine HCl (Flexeril) 10 mg PO TID PRN PRN Reason: Muscle Spasm Doxycycline Hyclate (Vibramycin) 100 mg PO BID [facility] Famotidine (Pepcid) 20 mg PO QAM [facility] Last Admin: 12/21/17 12:41 Dose: Not Given Fludrocortisone Acetate (Florinef) 0.1 mg PO DAILY [facility] Heparin Sodium (Porcine) (Heparin) 5,000 units SC BID [facility] Last Admin: 12/21/17 12:41 Dose: Not Given Midodrine (Proamatine) 10 mg PO TIDPRN PRN PRN Reason: Hypotension Last Admin: 12/21/17 10:11 Dose: 10 mg Ondansetron HCl (Zofran Odt) 4 mg PO Q6H PRN PRN Reason: Nausea/Vomiting Ondansetron HCl (Zofran) 4 mg IVP Q6H PRN PRN Reason: Nausea/Vomiting Pantoprazole Sodium (Protonix) 40 mg PO DAILY-[facility] Last Admin: 12/21/17 12:41 Dose: Not Given Sevelamer Carbonate (Renvela) 1,600 mg PO TID-WM [facility] Last Admin: 12/21/17 12:41 Dose: Not Given Sodium Chloride (Flush - Normal Saline) 10 ml IVF Q12HR [facility] Last Admin: 12/21/17 08:45 Dose: 10 ml Sodium Chloride (Flush - Normal Saline) 10 ml IVF PRN PRN PRN Reason: Saline Flush
[2017-12-21] MEDS: Fludrocortisone Acetate 0.1 MG TAB PO SCH (15:13)
[2017-12-21] MEDS: Cephalexin 250 MG CAP PO SCH ×2 (15:13→21:29)
[2017-12-21] MEDS: Doxycycline 100 MG CAP PO SCH ×2 (15:13→21:30)
[2017-12-22] MEDS: HYDROcodone/Acetaminophen 10/325 mg Tablet PO PRN ×2 (00:08→22:28)
[2017-12-22 04:48] LABS: #Eosinphils 0.7 thou/uL (0.0-0.7); #Lymphocytes 1.2 thou/uL (1.20-3.40); #Monocytes 0.5 thou/uL (0.11-0.59); #Neutrophils 4.3 thou/uL (1.40-6.50); %Basophils 0.5 % (0.0-1.0); %Eosinophils 10.7 % (0.0-10.0); %Lymphocytes 17.9 % (21.0-51.0); %Monocytes 7.6 % (0.0-10.0); %Neutrophils 63.3 % (42.0-75.0); Hemoglobin 7.5 g/dL (14.0-18.0); Mean Corpuscular HGB CONC 32.6 g/dL (32.0-36.0); Mean Corpuscular Hemoglobin 30.8 pg (27.0-31.0); Mean Corpuscular Volume 94.5 fL (78.0-98.0); Mean Platelet Volume 7.3 fL (7.4-10.4); Platelet Count 240 thou/uL (130-400); RBC Distribution Width 14.3 % (11.5-14.5); Red Blood Cell (RBC) Count 2.43 mill/uL (4.70-6.10); White Blood Cell (WBC) Count 6.8 thou/uL (4.8-10.8)
[2017-12-22 05:04] LABS: Anion Gap 14 mmol/L (10-20); BUN (Urea Nitrogen) 37 mg/dL (8.9-20.6); Calc. Creatinine Clearance 47 mL/min (70-130); Calcium 7.8 mg/dL (7.8-10.44); Carbon Dioxide 28 mmol/L (22-29); Chloride 101 mmol/L (98-107); Estimated GFR-MDRD 9; Glucose 109 mg/dL (70-105); Potassium 5.2 mmol/L (3.5-5.1); Sodium 138 mmol/L (136-145)
[2017-12-22] MEDS: Midodrine HCl 5 MG TAB PO PRN (08:00)
[2017-12-22] MEDS: Sevelamer Carbonate 800 MG TAB PO SCH ×3 (09:46→23:45)
[2017-12-22] MEDS: Cephalexin 250 MG CAP PO SCH ×2 (09:46→22:30)
[2017-12-22] MEDS: Famotidine 20 MG TAB PO SCH (09:47)
[2017-12-22] MEDS: Fludrocortisone Acetate 0.1 MG TAB PO SCH (09:47)
[2017-12-22] MEDS: Heparin 5,000 UNITS/ML VIAL SC SCH ×2 (09:47→22:32)
[2017-12-22] MEDS: Doxycycline 100 MG CAP PO SCH ×2 (09:47→22:29)
--- NOTE | 2017-12-22 16:39 | PRG ---
DATE OF SERVICE: 12/22/2017 SUBJECTIVE: Mr. Carrillo is a 32-year-old white male, followed up with ESRD, followed by the Renal Ser vice for his maintenance hemodialysis. He did undergo hemodialysis today with significant fluid shahriar brittnee. Our plan is to do another dialysis session in a.m. due to his volume overload. He has no other complaints. He is feeling better. OBJECTIVE: VITAL SIGNS: Blood pressure 108/57, heart rate 89, respiratory rate 16, temperature 99.9, pulse ox 9 3%. GENERAL: Noted to be awake, alert, comfortable, not in distress. SKIN: Adequate turgor. HEENT: He has slightly pale conjunctivae, anicteric sclerae. NECK: No neck mass, no carotid bruits, no JVD. CHEST: No deformities. LUNGS: Clear breath sounds. HEART: Normal sinus rhythm. No murmur, no gallops, no rubs. ABDOMEN: Globular, soft, nontender, no masses. EXTREMITIES: +4 edema. MEDICATIONS: Of December 22, 2017, reviewed. LABORATORIES: December 22, 2017, white count 6.8, hemoglobin 7.5. Sodium 138, potassium 5.2, chlorid e 101, carbon dioxide 28, BUN 37, creatinine 7.21, glucose 109, calcium 7.8. ASSESSMENT AND PLAN: 1. End-stage renal disease, stable. Extra hemodialysis in a.m. for fluid removal. After dialysis t omorrow, consider discharging this patient. 2. Anemia - Start Epogen 10,000 units subcutaneously every week. 3. End-stage renal disease, stable. Tolerating current hemodialysis regimen of 4 hours each treatme nt. Again, fluid removal as tolerated by the patient.
--- NOTE | 2017-12-22 17:46 | PDOC.PN ---
- Subjective Encounter Start Date: 12/22/17 Encounter Start Time: 07:20 Pt seen for followup re: volume overload. Denies chest pain, fevers or chills. Shortness of breath is better. - Objective Resuscitation Status: Resuscitation Status FULL:Full Resuscitation MAR Reviewed: Yes Vital Signs & Weight: Vital Signs (12 hours) Temp Pulse Resp BP Pulse Ox 12/22/17 13:26 97.9 F 89 16 108/57 L 93 L 12/22/17 07:57 98.6 F 83 16 106/56 L 92 L Weight Admit Weight 493 lb Weight 493 lb I&O: 12/21/17 12/22/17 12/23/17 06:59 06:59 06:59 Intake Total 1810 Output Total 4700 Balance -2890 Result Diagrams: 12/23/17 05:30 12/23/17 05:30 EKG Reviewed by me: Yes (Tele: NSR) Phys Exam - Physical Examination Morbidly obese HEENT: moist MMs Neck: supple Don crackles Cardiovascular: RRR Gastrointestinal: soft don LE lymphedema Neurological: moves all 4 limbs Psychiatric: normal affect Deviation from normal: wounds as documented Dx/Plan (1) Volume overload Code(s): E87.70 - FLUID OVERLOAD, UNSPECIFIED Status: Acute Comment: pt to have dialysis today (2) Wound of skin Code(s): T14.8XXA - OTHER INJURY OF UNSPECIFIED BODY REGION, INITIAL ENCOUNTER Status: Acute Comment: continue antibiotics as below (3) Acquired lymphedema of leg Code(s): I89.0 - LYMPHEDEMA, NOT ELSEWHERE CLASSIFIED Status: Chronic Comment: stable (4) ESRD (end stage renal disease) Code(s): N18.6 - END STAGE RENAL DISEASE Status: Chronic Comment: nephrology following - Plan * . Review of Systems - Review of Systems Respiratory: SOB with Excertion. negative: Cough, Shortness of Breath, Pleuritic Pain, Wheezing Cardiovascular: negative: chest pain, palpitations, orthopnea, paroxysmal nocturnal dyspnea, edema, light headedness - Medications/Allergies Allergies/Adverse Reactions: Allergies Allergy/AdvReac Type Severity Reaction Status Date / Time Penicillins Allergy Verified 09/27/16 10:41 Medications: Current Medications Acetaminophen (Tylenol) 650 mg PO Q4H PRN PRN Reason: Headache/Fever/Mild Pain (1-3) Hydrocodone Bitart/Acetaminophen ([place] 10/325) 1 tab PO Q4H PRN PRN Reason: Moderate to Severe Pain (6-10) Last Admin: 12/22/17 00:08 Dose: 1 tab Bisacodyl (Dulcolax) 10 mg PO DAILYPRN PRN PRN Reason: Constipation Cephalexin (Keflex) 500 mg PO BID [facility] Last Admin: 12/22/17 09:46 Dose: Not Given Cyclobenzaprine HCl (Flexeril) 10 mg PO TID PRN PRN Reason: Muscle Spasm Doxycycline Hyclate (Vibramycin) 100 mg PO BID [facility] Last Admin: 12/22/17 09:47 Dose: Not Given Epoetin Pepe (Procrit) 10,000 units SC Q7D [facility] Famotidine (Pepcid) 20 mg PO QAM [facility] Last Admin: 12/22/17 09:47 Dose: Not Given Fludrocortisone Acetate (Florinef) 0.1 mg PO DAILY [facility] Last Admin: 12/22/17 09:47 Dose: Not Given Heparin Sodium (Porcine) (Heparin) 5,000 units SC BID [facility] Last Admin: 12/22/17 09:47 Dose: Not Given Midodrine (Proamatine) 10 mg PO TIDPRN PRN PRN Reason: Hypotension Last Admin: 12/22/17 08:00 Dose: 10 mg Ondansetron HCl (Zofran Odt) 4 mg PO Q6H PRN PRN Reason: Nausea/Vomiting Ondansetron HCl (Zofran) 4 mg IVP Q6H PRN PRN Reason: Nausea/Vomiting Last Admin: 12/21/17 22:28 Dose: 4 mg Pantoprazole Sodium (Protonix) 40 mg PO DAILY-AC [facility] Last Admin: 12/22/17 09:46 Dose: Not Given Sevelamer Carbonate (Renvela) 1,600 mg PO TID-WM [facility] Last Admin: 12/22/17 12:09 Dose: Not Given Sodium Chloride (Flush - Normal Saline) 10 ml IVF Q12HR [facility] Last Admin: 12/21/17 21:30 Dose: 10 ml Sodium Chloride (Flush - Normal Saline) 10 ml IVF PRN PRN PRN Reason: Saline Flush
[2017-12-22] MEDS ORDERED: Epoetin (ESRD) 20,000 UNITS/ML SC SCH (18:00)
[2017-12-23 06:20] LABS: #Eosinphils 0.7 thou/uL (0.0-0.7); #Lymphocytes 1.2 thou/uL (1.20-3.40); #Monocytes 0.6 thou/uL (0.11-0.59); #Neutrophils 3.6 thou/uL (1.40-6.50); %Basophils 0.4 % (0.0-1.0); %Eosinophils 12.1 % (0.0-10.0); %Lymphocytes 19.1 % (21.0-51.0); %Monocytes 9.4 % (0.0-10.0); %Neutrophils 58.9 % (42.0-75.0); Hemoglobin 7.5 g/dL (14.0-18.0); Mean Corpuscular HGB CONC 32.7 g/dL (32.0-36.0); Mean Corpuscular Hemoglobin 30.9 pg (27.0-31.0); Mean Corpuscular Volume 94.5 fL (78.0-98.0); Mean Platelet Volume 7.7 fL (7.4-10.4); Platelet Count 174 thou/uL (130-400); RBC Distribution Width 14.3 % (11.5-14.5); Red Blood Cell (RBC) Count 2.42 mill/uL (4.70-6.10)
[2017-12-23 06:22] LABS: Anion Gap 10 mmol/L (10-20); BUN (Urea Nitrogen) 30 mg/dL (8.9-20.6); Calc. Creatinine Clearance 47 mL/min (70-130); Calcium 7.9 mg/dL (7.8-10.44); Carbon Dioxide 31 mmol/L (22-29); Chloride 100 mmol/L (98-107); Estimated GFR-MDRD 10; Glucose 103 mg/dL (70-105); Potassium 4.9 mmol/L (3.5-5.1); Sodium 136 mmol/L (136-145)
[2017-12-23] MEDS: Cephalexin 250 MG CAP PO SCH (10:53)
[2017-12-23] MEDS: Sevelamer Carbonate 800 MG TAB PO SCH ×3 (10:53→18:17)
[2017-12-23] MEDS: Doxycycline 100 MG CAP PO SCH (10:53)
[2017-12-23] MEDS: Famotidine 20 MG TAB PO SCH (10:53)
[2017-12-23] MEDS: Fludrocortisone Acetate 0.1 MG TAB PO SCH (10:54)
[2017-12-23] MEDS: Heparin 5,000 UNITS/ML VIAL SC SCH (10:54)
--- NOTE | 2017-12-23 12:25 | PRG ---
DATE OF SERVICE: 12/23/2017 SERVICE: Renal Medicine. SUBJECTIVE: Mr. Carrillo is a 32-year-old white male with end-stage renal disease, chronic lymphedema and admitted for volume overload. He has been receiving continuous dialysis. My plan is again to do extra hemodialysis with him for further fluid removal. He has been complaining of worsening leg cyril ma, although he has a baseline chronic lymphedema. He has gained several pounds of weight since he w as moved out from another place. This morning, he voices no new complaints. The shortness of breath is improved. No chest pain. No fever or chills. PHYSICAL EXAMINATION: VITAL SIGNS: Blood pressure 107/59, heart rate 87, respiratory rate 16, temperature 98.9, pulse ox 9 2%. GENERAL: Awake, alert, comfortable, not in distress, obese. SKIN: Adequate turgor. HEENT: He has slightly pale conjunctivae, anicteric sclerae. NECK: No neck mass, no carotid bruits, no JVD. CHEST: No deformities. LUNGS: Clear breath sounds. No wheezing, no crackles. HEART: Normal sinus rhythm. No murmur, no gallops or rubs. ABDOMEN: Globular, soft, nontender, no masses. EXTREMITIES: Positive for edema. MEDICATIONS: Of 12/23/2017 was reviewed. LABORATORY DATA: Of 12/23/2017, white count 6, hemoglobin 7.5. Sodium 136, potassium 4.9, chloride 100, carbon dioxide 31, BUN 30, creatinine 6.5, glucose 103, calcium 7.9. ASSESSMENT AND PLAN: 1. End-stage renal disease - due to the volume overload, we will do extra hemodialysis today. Again , fluid removal as tolerated by the patient. After dialysis today, we can consider discharging patie nt. 2. Anemia - continuing weekly Epogen of 10,000 units subcutaneously every week. P.r.n. blood transf usion. 3. Volume overload. Fluid removal with dialysis.
[2017-12-23 13:22] VITALS: BP 105/57; TEMP 99.1
[2017-12-23] MEDS: Midodrine HCl 5 MG TAB PO PRN (13:22)
[2017-12-23] MEDS: HYDROcodone/Acetaminophen 10/325 mg Tablet PO PRN (13:24)
--- NOTE | 2017-12-23 21:33 | DIS ---
DATE OF ADMISSION: 12/20/2017 DATE OF DISCHARGE: 12/23/2017 PRIMARY CARE PROVIDER: Duarte Castro M.D. DISCHARGE DIAGNOSES: 1. Volume overload. 2. Chronic lymphedema. 3. Chronic leg wounds. CONSULTATIONS DURING THIS HOSPITALIZATION: Nephrology, Dr. Bonner. CONDITION OF PATIENT ON THE DAY OF DISCHARGE: Stable. I assessed Mr. Carrillo on the day of discharge . He denies any chest pain or shortness of breath. Vital signs are stable. S1 and S2 are heard, re gular. Lungs are clear to auscultation bilaterally. DISCHARGE MEDICATIONS: No change was made to his preadmission home medications, which include cephal exin 500 mg 2 times a day, doxycycline 100 mg 2 times a day, Florinef 0.1 mg daily, Protonix 40 mg da nan, Renvela at 1600 mg 3 times a day, [place] 10/325 mg every 4 hours as needed, Flexeril 10 mg 3 time s a day as needed and midodrine 10 mg 3 times a day as needed. HOSPITAL COURSE: Mr. Carrillo is a pleasant 32-year-old gentleman who was admitted to [facility] on 12/21/2017, for shortness of breath secondary to volume overload because of miss ed hemodialysis appointments. Please refer Dr. Resendez's history and physical note dated 12/21/2017 f or further details. He was seen by Nephrology Service and underwent hemodialysis on 12/21/2017 and 1 . He improved symptomatically. He is also scheduled to have hemodialysis on 12/23/2017 christina or to discharge. He was seen by wound care team for chronic leg wounds. On the day of discharge, he has white count of 6000, hemoglobin 7.5, platelet count 174,000, normal s odium, normal potassium, elevated blood urea nitrogen of 30 and elevated creatinine of 6.50, prior to dialysis. Folate level was decreased at 2.80. Iron level was also decreased at 42, but TIBC was al so decreased at 120. Ferritin was elevated at 364.07. Many thanks for allowing me to participate in your patient's care. Please feel free to contact me wi th any questions or concerns. DISCHARGE DESTINATION: Home. TOTAL AMOUNT OF TIME SPENT COORDINATING THIS DISCHARGE: 31 minutes.
--- NOTE | 2017-12-30 14:06 | EKG ---
Test Reason : Blood Pressure : / mmHG Vent. Rate : 101 BPM Atrial Rate : 101 BPM P-R Int : 158 ms QRS Dur : 096 ms QT Int : 348 ms P-R-T Axes : 006 013 181 degrees QTc Int : 451 ms Sinus tachycardia Cannot rule out Anterior infarct , age undetermined Abnormal ECG Confirmed by BRYANNA AVILEZ, SUKHWINDER Khan ([id number]), city editor SABINE EDWARD ([id number]) on 12/30/2017 2:05:48 PM Referred By: Confirmed By:SUKHWINDER GOULD MD
== END 2017-12-23 20:10 | disposition home or self-care (01) | DRG 640 ==
LOC: ERS 18:37 → 2NO 22:45
PROVIDERS: ADMIT Internal Medicine; ATTEND Internal Medicine
PROC: 30233N1 Transfusion of Nonautologous Red Blood Cells into Peripheral Vein, Percutaneous Approach (ICD-10-PCS; principal; 2017-12-21)
PROC: 5A1D70Z Performance of Urinary Filtration, Intermittent, Less than 6 Hours Per Day (ICD-10-PCS; 2017-12-21)
PROC: 5A1D70Z Performance of Urinary Filtration, Intermittent, Less than 6 Hours Per Day (ICD-10-PCS; 2017-12-22)
PROC: 5A1D70Z Performance of Urinary Filtration, Intermittent, Less than 6 Hours Per Day (ICD-10-PCS; 2017-12-23)
DX: E87.70 Fluid overload, unspecified (principal); N18.6 End stage renal disease; I12.0 Hypertensive chronic kidney disease with stage 5 chronic kidney disease or end stage renal disease; Z68.44 Body mass index [BMI] 60.0-69.9, adult; T14.8XXA Other injury of unspecified body region, initial encounter; Z91.15 Patient's noncompliance with renal dialysis; Z99.2 Dependence on renal dialysis; Z91.81 History of falling; K21.9 Gastro-esophageal reflux disease without esophagitis; Q82.0 Hereditary lymphedema; Z87.891 Personal history of nicotine dependence; D63.1 Anemia in chronic kidney disease; E87.5 Hyperkalemia; E66.01 Morbid (severe) obesity due to excess calories; D50.9 Iron deficiency anemia, unspecified; L97.529 Non-pressure chronic ulcer of other part of left foot with unspecified severity; L97.519 Non-pressure chronic ulcer of other part of right foot with unspecified severity
CPT/HCPCS: 36415; 36430; 80048; 80053; 82607; 82728; 82746; 83540; 83550; 83880; 85025; 85046; 86850; 86900; 86901; 87340; 90935; 93005; G0257; J1644; J2405; P9016; Q4081

== ENCOUNTER 2021-10-08 15:40 | Inpatient (IN) | payer MEDICARE, MEDICAID ==
[2021-10-08 17:14] LABS: #Eosinphils 0.2 thou/uL (0.0-0.7); #Lymphocytes 0.5 thou/uL (1.20-3.40); #Monocytes 0.3 thou/uL (0.11-0.59); #Neutrophils 4.7 thou/uL (1.40-6.50); %Basophils 0.2 % (0.0-1.0); %Eosinophils 3.1 % (0.0-10.0); %Lymphocytes 8.2 % (21.0-51.0); %Monocytes 4.9 % (0.0-10.0); %Neutrophils 83.5 % (42.0-75.0); Hemoglobin 8.7 g/dL (14.0-18.0); Mean Corpuscular HGB CONC 32.5 g/dL (32.0-36.0); Mean Platelet Volume 8.4 fL (7.4-10.4); Platelet Count 178 thou/uL (130-400); RBC Distribution Width 14.4 % (11.5-14.5); Red Blood Cell (RBC) Count 2.64 mill/uL (4.70-6.10); White Blood Cell (WBC) Count 5.7 thou/uL (4.8-10.8)
[2021-10-08 17:44] LABS: ALT (SGPT) Less than 7 U/L (8-55); AST (SGOT) 7 U/L (5-34); Albumin 3.2 g/dL (3.5-5.0); Alkaline Phosphatase 60 U/L (40-110); Anion Gap 25 mmol/L (10-20); BUN (Urea Nitrogen) 84 mg/dL (8.9-20.6); Bilirubin, Total 0.6 mg/dL (0.2-1.2); Calc. Creatinine Clearance 0 mL/min (70-130); Calcium 7.4 mg/dL (7.8-10.44); Carbon Dioxide 21 mmol/L (22-29); Chloride 95 mmol/L (98-107); Estimated GFR 3; Globulin 4.1 g/dL (2.4-3.5); Glucose 108 mg/dL (70-105); Potassium 4.8 mmol/L (3.5-5.1); Protein, Total 7.3 g/dL (6.0-8.3); Sodium 136 mmol/L (136-145)
[2021-10-08] MEDS ORDERED: Ondansetron ODT 4 MG TAB PO PRN (22:26)
[2021-10-08] MEDS ORDERED: Acetaminophen 650 MG Suppository PR PRN (22:26)
[2021-10-08] MEDS ORDERED: Ondansetron PF 4 MG/2 ML Vial IVP PRN (22:26)
[2021-10-08] MEDS ORDERED: cefTRIAXone\\ROCEPHIN 1 GM in Sodium Chloride 0.9% 100 ML IVPB SCH (23:00)
[2021-10-08 23:08] VITALS: BMI 51.6
[2021-10-08] MEDS ORDERED: CEFAZOLIN 2 GM in Sodium Chloride 0.9% 100 ML IVPB SCH (23:30)
[2021-10-08] MEDS ORDERED: Cyclobenzaprine 10 MG TAB PO PRN (23:32)
[2021-10-09 00:28] LABS: SARS-CoV-2 NAA Rapid Test Not Detected (NotDetected)
[2021-10-09] MEDS: HYDROcodone/Acetaminophen 7.5/325 mg Tablet PO PRN ×2 (00:41→17:51)
[2021-10-09 05:42] LABS: #Eosinphils 0.2 thou/uL (0.0-0.7); #Lymphocytes 0.6 thou/uL (1.20-3.40); #Monocytes 0.4 thou/uL (0.11-0.59); #Neutrophils 3.9 thou/uL (1.40-6.50); %Basophils 0.1 % (0.0-1.0); %Eosinophils 4.4 % (0.0-10.0); %Lymphocytes 12.1 % (21.0-51.0); %Monocytes 7.5 % (0.0-10.0); %Neutrophils 75.9 % (42.0-75.0); Hemoglobin 8.3 g/dL (14.0-18.0); Mean Corpuscular HGB CONC 31.6 g/dL (32.0-36.0); Mean Corpuscular Hemoglobin 32.1 pg (27.0-31.0); Mean Platelet Volume 8.3 fL (7.4-10.4); Platelet Count 162 thou/uL (130-400); RBC Distribution Width 14.2 % (11.5-14.5); Red Blood Cell (RBC) Count 2.58 mill/uL (4.70-6.10); White Blood Cell (WBC) Count 5.1 thou/uL (4.8-10.8)
[2021-10-09 06:01] LABS: Anion Gap 23 mmol/L (10-20); BUN (Urea Nitrogen) 84 mg/dL (8.9-20.6); Calc. Creatinine Clearance 11 mL/min (70-130); Calcium 7.2 mg/dL (7.8-10.44); Carbon Dioxide 20 mmol/L (22-29); Chloride 96 mmol/L (98-107); Estimated GFR 3; Glucose 102 mg/dL (70-105); Potassium 5.3 mmol/L (3.5-5.1); Sodium 134 mmol/L (136-145)
[2021-10-09] MEDS: Midodrine HCl 5 MG TAB PO SCH ×3 (06:44→21:01)
[2021-10-09] MEDS ORDERED: Midazolam HCl 2 mg/2 ml Vial ONE (07:23)
[2021-10-09] MEDS ORDERED: fentaNYL Citrate/PF 100 MCG/2 ML SYRINGE ONE (07:24)
[2021-10-09] MEDS ORDERED: Bupivacaine/Epinephrine 0.25% 30 ML VIAL ONE (07:33)
[2021-10-09] MEDS ORDERED: Heparin 10,000 UNITS/ 10 ML VIAL ONE ×2 (07:33→09:36)
[2021-10-09] MEDS ORDERED: Fentanyl 100 MCG/2 ML VIAL ONE (07:43)
[2021-10-09] MEDS: Heparin 5,000 UNITS/ML VIAL SC SCH ×4 (07:46→23:08)
[2021-10-09] MEDS: Fludrocortisone Acetate 0.1 MG TAB PO SCH (07:46)
[2021-10-09] MEDS ORDERED: Lidocaine 1% (PF) 30 ML VIAL ONE (07:53)
[2021-10-09] MEDS ORDERED: Sodium Chloride 0.9% 100 ML ONE (07:58)
[2021-10-09] MEDS ORDERED: CEFAZOLIN 2 GM VIAL ONE (07:58)
[2021-10-09] MEDS ORDERED: Sevelamer Carbonate 800 MG TAB PO SCH (08:00)
[2021-10-09] MEDS ORDERED: Lidocaine 1% PF 5 ML VIAL ONE (08:04)
[2021-10-09] MEDS ORDERED: Ondansetron ODT 4 MG TAB ONE (08:58)
[2021-10-09] MEDS ORDERED: EPOETIN ALFA-EPBX (ESRD) 10,000 UNIT/ML VIAL SC SCH (12:45)
[2021-10-09 12:46] LABS: HBSAg Index 0.22 S/CO (0-0.99); Hep B Surf Ag Non-Reactive S/CO (NonReactive)
[2021-10-09 12:52] LABS: HBSAB Concentration 19.14 mIU/mL; Hep B Surf AB Reactive (NonReactive)
[2021-10-09] MEDS ORDERED: Epoetin (ESRD) 10,000 UNITS/ML VIAL SC SCH (13:15)
[2021-10-09] MEDS: Sevelamer Carbonate 800 MG TAB PO SCH ×2 (14:28→17:50)
[2021-10-09] MEDS: Ferrous Sulfate 325 MG TAB PO SCH (17:52)
[2021-10-09] MEDS: Acetaminophen 325 MG TAB PO PRN (23:10)
[2021-10-10] MEDS: Midodrine HCl 5 MG TAB PO SCH ×3 (06:17→21:56)
[2021-10-10 06:25] LABS: Hemoglobin 8.4 g/dL (14.0-18.0); Mean Corpuscular HGB CONC 33.6 g/dL (32.0-36.0); Mean Corpuscular Hemoglobin 33.7 pg (27.0-31.0); Mean Platelet Volume 8.4 fL (7.4-10.4); Platelet Count 161 thou/uL (130-400); RBC Distribution Width 14.1 % (11.5-14.5)
[2021-10-10 06:45] LABS: Anion Gap 23 mmol/L (10-20); BUN (Urea Nitrogen) 63 mg/dL (8.9-20.6); Calc. Creatinine Clearance 15 mL/min (70-130); Calcium 7.4 mg/dL (7.8-10.44); Carbon Dioxide 20 mmol/L (22-29); Chloride 97 mmol/L (98-107); Estimated GFR 4; Glucose 102 mg/dL (70-105); Potassium 4.6 mmol/L (3.5-5.1); Sodium 135 mmol/L (136-145)
[2021-10-10 07:13] LABS: Thyroid Stimulating Hormone 42.2796 uIU/mL (0.35-4.94)
[2021-10-10] MEDS ORDERED: CEFAZOLIN 2 GM in Sodium Chloride 0.9% 100 ML IVPB SCH (08:45)
[2021-10-10] MEDS: Acetaminophen 325 MG TAB PO PRN (09:06)
[2021-10-10] MEDS: Fludrocortisone Acetate 0.1 MG TAB PO SCH (09:07)
[2021-10-10] MEDS: Ferrous Sulfate 325 MG TAB PO SCH ×2 (09:07→17:52)
[2021-10-10] MEDS: Folic Acid 1 MG TAB PO SCH (09:07)
[2021-10-10] MEDS: Sevelamer Carbonate 800 MG TAB PO SCH ×3 (09:07→17:52)
[2021-10-10] MEDS: Heparin 5,000 UNITS/ML VIAL SC SCH ×3 (09:07→21:58)
[2021-10-10] MEDS: Gabapentin 100 MG CAP PO SCH (21:57)
[2021-10-11] MEDS: Levothyroxine Sodium 100 MCG TAB PO SCH (05:11)
[2021-10-11] MEDS: Midodrine HCl 5 MG TAB PO SCH ×3 (05:11→20:45)
[2021-10-11 06:28] LABS: #Eosinphils 0.3 thou/uL (0.0-0.7); #Lymphocytes 0.8 thou/uL (1.20-3.40); #Monocytes 0.4 thou/uL (0.11-0.59); #Neutrophils 4.4 thou/uL (1.40-6.50); %Basophils 0.3 % (0.0-1.0); %Eosinophils 5.5 % (0.0-10.0); %Lymphocytes 13.5 % (21.0-51.0); %Monocytes 6.9 % (0.0-10.0); %Neutrophils 73.9 % (42.0-75.0); Hemoglobin 9.1 g/dL (14.0-18.0); Mean Corpuscular HGB CONC 31.8 g/dL (32.0-36.0); Mean Corpuscular Hemoglobin 32.5 pg (27.0-31.0); Mean Platelet Volume 8.2 fL (7.4-10.4); Platelet Count 212 thou/uL (130-400); RBC Distribution Width 14.1 % (11.5-14.5); Red Blood Cell (RBC) Count 2.81 mill/uL (4.70-6.10)
[2021-10-11 06:33] LABS: Anion Gap 20 mmol/L (10-20); BUN (Urea Nitrogen) 62 mg/dL (8.9-20.6); Calc. Creatinine Clearance 15 mL/min (70-130); Calcium 8.2 mg/dL (7.8-10.44); Carbon Dioxide 24 mmol/L (22-29); Chloride 94 mmol/L (98-107); Estimated GFR 4; Glucose 115 mg/dL (70-105); Potassium 4.4 mmol/L (3.5-5.1); Sodium 134 mmol/L (136-145)
[2021-10-11] MEDS: Fludrocortisone Acetate 0.1 MG TAB PO SCH (08:12)
[2021-10-11] MEDS: Ferrous Sulfate 325 MG TAB PO SCH ×2 (08:12→19:04)
[2021-10-11] MEDS: Sevelamer Carbonate 800 MG TAB PO SCH ×3 (08:12→19:04)
[2021-10-11] MEDS: Heparin 5,000 UNITS/ML VIAL SC SCH ×3 (08:13→19:34)
[2021-10-11] MEDS: Folic Acid 1 MG TAB PO SCH (08:13)
[2021-10-11] MEDS ORDERED: Heparin 5,000 UNITS/ML VIAL ONE (09:46)
[2021-10-11] MEDS ORDERED: Bupivacaine/Epinephrine 0.25% 30 ML VIAL ONE (09:46)
[2021-10-11] MEDS ORDERED: Protamine Sulfate 50 MG/5 ML VIAL ONE (09:46)
[2021-10-11] MEDS ORDERED: fentaNYL Citrate/PF 100 MCG/2 ML SYRINGE ONE (09:54)
[2021-10-11] MEDS ORDERED: Sodium Chloride 0.9% 100 ML ONE (09:56)
[2021-10-11] MEDS ORDERED: CEFAZOLIN 2 GM VIAL ONE (09:56)
[2021-10-11] MEDS ORDERED: Neostigmine Methylsulfate 3 MG/3 ML SYRINGE ONE (10:19)
[2021-10-11] MEDS ORDERED: Glycopyrrolate 0.2 MG/ML 5 ML SYRINGE ONE (10:19)
[2021-10-11] MEDS ORDERED: Albuterol Sulfate HFA (OR ONLY) ONE (10:19)
[2021-10-11] MEDS ORDERED: ePHEDrine 50 MG/ML VIAL ONE (10:19)
[2021-10-11] MEDS ORDERED: Rocuronium Bromide 10 MG/ML (10ML VIAL) ONE (10:19)
[2021-10-11] MEDS ORDERED: Lidocaine 1% PF 5 ML VIAL ONE (10:19)
[2021-10-11] MEDS ORDERED: Phenylephrine 10 MG/ML VIAL ONE (10:19)
[2021-10-11] MEDS ORDERED: Ondansetron PF 4 MG/2 ML Vial ONE (10:19)
[2021-10-11] MEDS ORDERED: PROPOFOL 200 MG/20 ML VIAL ONE (10:19)
[2021-10-11] MEDS ORDERED: Promethazine HCl 25 MG/ML VIAL IM PRN (12:34)
[2021-10-11] MEDS ORDERED: Ondansetron HCl/PF 4 MG/2 ML Vial IVP PRN (12:34)
[2021-10-11] MEDS ORDERED: Promethazine HCl 25 MG/ML VIAL IVPB PRN (12:34)
[2021-10-11] MEDS ORDERED: Heparin 10,000 UNITS/ 10 ML VIAL ONE (13:29)
[2021-10-11] MEDS: Gabapentin 100 MG CAP PO SCH (20:45)
[2021-10-12] MEDS: Levothyroxine Sodium 100 MCG TAB PO SCH (04:24)
[2021-10-12] MEDS: Midodrine HCl 5 MG TAB PO SCH ×3 (04:24→20:38)
[2021-10-12 06:22] LABS: #Eosinphils 0.2 thou/uL (0.0-0.7); #Lymphocytes 0.8 thou/uL (1.20-3.40); #Monocytes 0.5 thou/uL (0.11-0.59); #Neutrophils 3.9 thou/uL (1.40-6.50); %Eosinophils 3.4 % (0.0-10.0); %Lymphocytes 14.5 % (21.0-51.0); %Monocytes 9.5 % (0.0-10.0); %Neutrophils 72.6 % (42.0-75.0); Hemoglobin 9.3 g/dL (14.0-18.0); Mean Corpuscular HGB CONC 30.8 g/dL (32.0-36.0); Mean Corpuscular Hemoglobin 31.6 pg (27.0-31.0); Mean Platelet Volume 8.6 fL (7.4-10.4); Platelet Count 182 thou/uL (130-400); RBC Distribution Width 14.2 % (11.5-14.5); Red Blood Cell (RBC) Count 2.94 mill/uL (4.70-6.10); White Blood Cell (WBC) Count 5.3 thou/uL (4.8-10.8)
[2021-10-12 06:38] LABS: Anion Gap 22 mmol/L (10-20); BUN (Urea Nitrogen) 44 mg/dL (8.9-20.6); Calc. Creatinine Clearance 19 mL/min (70-130); Calcium 8.5 mg/dL (7.8-10.44); Carbon Dioxide 24 mmol/L (22-29); Chloride 96 mmol/L (98-107); Estimated GFR 5; Glucose 105 mg/dL (70-105); Potassium 4.4 mmol/L (3.5-5.1); Sodium 138 mmol/L (136-145)
[2021-10-12] MEDS: Heparin 5,000 UNITS/ML VIAL SC SCH ×2 (09:06→13:48)
[2021-10-12] MEDS: Sevelamer Carbonate 800 MG TAB PO SCH ×3 (09:09→17:24)
[2021-10-12] MEDS: Folic Acid 1 MG TAB PO SCH (09:10)
[2021-10-12] MEDS: Acetaminophen 325 MG TAB PO PRN (09:10)
[2021-10-12] MEDS: Fludrocortisone Acetate 0.1 MG TAB PO SCH (09:10)
[2021-10-12] MEDS: Ferrous Sulfate 325 MG TAB PO SCH ×2 (09:10→17:24)
[2021-10-12] MEDS: Nicotine 21 MG PATCH TD SCH (17:24)
[2021-10-12] MEDS: Gabapentin 100 MG CAP PO SCH (20:38)
[2021-10-12] MEDS ORDERED: Apixaban 5 MG TAB PO SCH (21:00)
[2021-10-13 04:29] LABS: #Eosinphils 0.3 thou/uL (0.0-0.7); #Lymphocytes 0.8 thou/uL (1.20-3.40); #Monocytes 0.5 thou/uL (0.11-0.59); #Neutrophils 4.9 thou/uL (1.40-6.50); %Basophils 0.2 % (0.0-1.0); %Eosinophils 4.7 % (0.0-10.0); %Lymphocytes 11.8 % (21.0-51.0); %Monocytes 7.3 % (0.0-10.0); Hemoglobin 8.7 g/dL (14.0-18.0); Mean Corpuscular HGB CONC 31.6 g/dL (32.0-36.0); Mean Corpuscular Hemoglobin 32.3 pg (27.0-31.0); Mean Platelet Volume 8.1 fL (7.4-10.4); Platelet Count 233 thou/uL (130-400); RBC Distribution Width 14.1 % (11.5-14.5); Red Blood Cell (RBC) Count 2.69 mill/uL (4.70-6.10); White Blood Cell (WBC) Count 6.5 thou/uL (4.8-10.8)
[2021-10-13 05:00] LABS: Anion Gap 25 mmol/L (10-20); BUN (Urea Nitrogen) 47 mg/dL (8.9-20.6); Calc. Creatinine Clearance 18 mL/min (70-130); Calcium 8.3 mg/dL (7.8-10.44); Carbon Dioxide 20 mmol/L (22-29); Chloride 95 mmol/L (98-107); Estimated GFR 5; Glucose 91 mg/dL (70-105); Potassium 4.6 mmol/L (3.5-5.1); Sodium 135 mmol/L (136-145)
[2021-10-13] MEDS: Levothyroxine Sodium 100 MCG TAB PO SCH (05:16)
[2021-10-13] MEDS: Midodrine HCl 5 MG TAB PO SCH ×3 (05:17→21:16)
[2021-10-13] MEDS ORDERED: Heparin 10,000 UNITS/ 10 ML VIAL ONE (08:31)
[2021-10-13] MEDS: Ferrous Sulfate 325 MG TAB PO SCH ×2 (08:59→17:41)
[2021-10-13] MEDS: Fludrocortisone Acetate 0.1 MG TAB PO SCH (09:00)
[2021-10-13] MEDS: Sevelamer Carbonate 800 MG TAB PO SCH ×3 (09:00→17:42)
[2021-10-13] MEDS: Heparin 5,000 UNITS/ML VIAL SC SCH ×3 (09:01→21:21)
[2021-10-13] MEDS: Folic Acid 1 MG TAB PO SCH (09:01)
[2021-10-13] MEDS ORDERED: Aspirin 81 mg Enteric Coated Tablet PO SCH (16:30)
[2021-10-13] MEDS: Nicotine 21 MG PATCH TD SCH (17:42)
[2021-10-13] MEDS: Gabapentin 100 MG CAP PO SCH (21:16)
[2021-10-14 04:15] LABS: #Eosinphils 0.3 thou/uL (0.0-0.7); #Lymphocytes 1.1 thou/uL (1.20-3.40); #Monocytes 0.5 thou/uL (0.11-0.59); #Neutrophils 4.4 thou/uL (1.40-6.50); %Basophils 0.2 % (0.0-1.0); %Eosinophils 4.4 % (0.0-10.0); %Lymphocytes 17.6 % (21.0-51.0); %Neutrophils 69.8 % (42.0-75.0); Hemoglobin 8.2 g/dL (14.0-18.0); Mean Corpuscular Hemoglobin 33.1 pg (27.0-31.0); Platelet Count 219 thou/uL (130-400); RBC Distribution Width 14.3 % (11.5-14.5); Red Blood Cell (RBC) Count 2.48 mill/uL (4.70-6.10); White Blood Cell (WBC) Count 6.2 thou/uL (4.8-10.8)
[2021-10-14 04:40] LABS: Anion Gap 18 mmol/L (10-20); BUN (Urea Nitrogen) 34 mg/dL (8.9-20.6); Calc. Creatinine Clearance 23 mL/min (70-130); Calcium 8.1 mg/dL (7.8-10.44); Carbon Dioxide 28 mmol/L (22-29); Chloride 96 mmol/L (98-107); Estimated GFR 6; Glucose 92 mg/dL (70-105); Potassium 4.1 mmol/L (3.5-5.1); Sodium 138 mmol/L (136-145)
[2021-10-14] MEDS: Midodrine HCl 5 MG TAB PO SCH ×2 (04:51→13:01)
[2021-10-14] MEDS: Levothyroxine Sodium 100 MCG TAB PO SCH (04:51)
[2021-10-14 04:58] LABS: Free T4 (Free Thyroxine) 0.65 ng/dL (0.70-1.48); Thyroid Stimulating Hormone 78.4019 uIU/mL (0.35-4.94)
[2021-10-14] MEDS ORDERED: Levothyroxine Sodium 100 MCG TAB PO SCH (08:20)
[2021-10-14] MEDS ORDERED: Aspirin 81 mg Enteric Coated Tablet PO SCH (09:00)
[2021-10-14] MEDS ORDERED: Flecainide 50 MG TAB PO SCH (09:00)
[2021-10-14] MEDS: Folic Acid 1 MG TAB PO SCH (09:09)
[2021-10-14] MEDS: Fludrocortisone Acetate 0.1 MG TAB PO SCH (09:09)
[2021-10-14] MEDS: Sevelamer Carbonate 800 MG TAB PO SCH ×3 (09:09→16:55)
[2021-10-14] MEDS: Heparin 5,000 UNITS/ML VIAL SC SCH (09:10)
[2021-10-14] MEDS: Ferrous Sulfate 325 MG TAB PO SCH ×2 (09:10→16:55)
[2021-10-14 16:17] VITALS: BP 104/55; TEMP 98.1
[2021-10-14] MEDS: Nicotine 21 MG PATCH TD SCH (16:55)
[2021-10-15] MEDS ORDERED: Levothyroxine Sodium 125 MCG TAB PO SCH (06:00)
== END 2021-10-14 18:23 | disposition home or self-care (01) | DRG 264 ==
LOC: ERS 15:40 → T4-A 19:28 → 2NO 10-12 15:11
PROVIDERS: ADMIT Student in an Organized Health Care Education/Training Program; ATTEND Internal Medicine Geriatric Medicine
PROC: 5A1D70Z Performance of Urinary Filtration, Intermittent, Less than 6 Hours Per Day (ICD-10-PCS; 2021-10-08)
PROC: 0JH63XZ Insertion of Tunneled Vascular Access Device into Chest Subcutaneous Tissue and Fascia, Percutaneous Approach (ICD-10-PCS; 2021-10-09)
PROC: 02HV33Z Insertion of Infusion Device into Superior Vena Cava, Percutaneous Approach (ICD-10-PCS; 2021-10-09)
PROC: B518ZZA Fluoroscopy of Superior Vena Cava, Guidance (ICD-10-PCS; 2021-10-09)
PROC: 031B0ZF Bypass Right Radial Artery to Lower Arm Vein, Open Approach (ICD-10-PCS; principal; 2021-10-11)
DX: T82.868A Thrombosis due to vascular prosthetic devices, implants and grafts, initial encounter (principal); N18.6 End stage renal disease; N17.9 Acute kidney failure, unspecified; N03.9 Chronic nephritic syndrome with unspecified morphologic changes; I13.2 Hypertensive heart and chronic kidney disease with heart failure and with stage 5 chronic kidney disease, or end stage renal disease; Z68.43 Body mass index [BMI] 50.0-59.9, adult; Z20.822 Contact with and (suspected) exposure to COVID-19; K21.9 Gastro-esophageal reflux disease without esophagitis; E83.39 Other disorders of phosphorus metabolism; I50.9 Heart failure, unspecified; D63.1 Anemia in chronic kidney disease; E87.5 Hyperkalemia; Y83.2 Surgical operation with anastomosis, bypass or graft as the cause of abnormal reaction of the patient, or of later complication, without mention of misadventure at the time of the procedure; F41.9 Anxiety disorder, unspecified; F32.A Depression, unspecified; E66.01 Morbid (severe) obesity due to excess calories; I73.9 Peripheral vascular disease, unspecified; E03.9 Hypothyroidism, unspecified; I48.0 Paroxysmal atrial fibrillation; Z99.2 Dependence on renal dialysis; Z87.891 Personal history of nicotine dependence; Z82.49 Family history of ischemic heart disease and other diseases of the circulatory system; Z83.3 Family history of diabetes mellitus; Z80.9 Family history of malignant neoplasm, unspecified; Q82.0 Hereditary lymphedema; Z88.0 Allergy status to penicillin; Z79.899 Other long term (current) drug therapy
CPT/HCPCS: 36415; 71045; 80048; 80053; 82607; 83735; 84439; 84443; 85025; 85027; 86706; 87340; 90935; 93005; 93010; 93306; 93923; 93931; 93970; C1713; C1752; C1776; G0257; J0690; J0696; J1642; J1644; J2001; J2250; J2370; J2405; J2704; J2720; J3010; J3490; Q0162; Q4081; U0002

== ENCOUNTER 2021-10-27 22:54 | Emergency (ER) | payer MEDICARE, MEDICAID ==
[2021-10-28] MEDS ORDERED: Morphine 4 MG/ML VIAL ONE (02:13)
[2021-10-28 02:14] LABS: #Eosinphils 0.3 thou/uL (0.0-0.7); #Lymphocytes 0.8 thou/uL (1.20-3.40); #Monocytes 0.4 thou/uL (0.11-0.59); #Neutrophils 2.6 thou/uL (1.40-6.50); %Basophils 0.4 % (0.0-1.0); %Eosinophils 6.2 % (0.0-10.0); %Lymphocytes 18.3 % (21.0-51.0); %Monocytes 10.7 % (0.0-10.0); %Neutrophils 64.4 % (42.0-75.0); Hemoglobin 8.7 g/dL (14.0-18.0); Mean Corpuscular HGB CONC 31.7 g/dL (32.0-36.0); Mean Corpuscular Hemoglobin 33.1 pg (27.0-31.0); Mean Platelet Volume 8.1 fL (7.4-10.4); Platelet Count 175 thou/uL (130-400); Red Blood Cell (RBC) Count 2.64 mill/uL (4.70-6.10); White Blood Cell (WBC) Count 4.1 thou/uL (4.8-10.8)
[2021-10-28 02:33] LABS: ALT (SGPT) Less than 7 U/L (8-55); AST (SGOT) 12 U/L (5-34); Albumin 3.5 g/dL (3.5-5.0); Alkaline Phosphatase 65 U/L (40-110); Anion Gap 15 mmol/L (10-20); BUN (Urea Nitrogen) 20 mg/dL (8.9-20.6); Bilirubin, Total 0.6 mg/dL (0.2-1.2); Calc. Creatinine Clearance 0 mL/min (70-130); Calcium 8.6 mg/dL (7.8-10.44); Carbon Dioxide 31 mmol/L (22-29); Chloride 97 mmol/L (98-107); Estimated GFR 11; Glucose 113 mg/dL (70-105); Potassium 4.2 mmol/L (3.5-5.1); Protein, Total 7.5 g/dL (6.0-8.3); Sodium 139 mmol/L (136-145)
[2021-10-28 02:56] LABS: CKMB 0.3 ng/mL (0-6.6)
== END 2021-10-28 04:47 | disposition home or self-care (01) ==
LOC: ERS 22:54
DX: M25.512 Pain in left shoulder (principal); R21 Rash and other nonspecific skin eruption; K21.9 Gastro-esophageal reflux disease without esophagitis; I10 Essential (primary) hypertension; Z79.899 Other long term (current) drug therapy; Z87.891 Personal history of nicotine dependence
CPT/HCPCS: 71045; 80053; 82553; 84484; 85025; 93005; 96374; J2270

== ENCOUNTER 2022-01-13 13:41 | Inpatient (IN) | payer MEDICARE, MEDICAID ==
[2022-01-13 14:20] LABS: #Eosinphils 0.1 thou/uL (0.0-0.7); #Lymphocytes 0.5 thou/uL (1.20-3.40); #Monocytes 0.6 thou/uL (0.11-0.59); #Neutrophils 8.2 thou/uL (1.40-6.50); %Eosinophils 1.1 % (0.0-10.0); %Lymphocytes 4.9 % (21.0-51.0); %Monocytes 6.7 % (0.0-10.0); %Neutrophils 87.2 % (42.0-75.0); Hemoglobin 8.1 g/dL (14.0-18.0); Mean Corpuscular HGB CONC 31.6 g/dL (32.0-36.0); Mean Corpuscular Hemoglobin 31.7 pg (27.0-31.0); Mean Platelet Volume 8.4 fL (7.4-10.4); Platelet Count 191 10x3/uL (130-400); RBC Distribution Width 14.5 % (11.5-14.5); Red Blood Cell (RBC) Count 2.55 mill/uL (4.70-6.10); White Blood Cell (WBC) Count 9.3 10x3/uL (4.8-10.8)
[2022-01-13 14:44] LABS: ALT (SGPT) Less than 7 U/L (8-55); AST (SGOT) 8 U/L (5-34); Albumin 2.9 g/dL (3.5-5.0); Alkaline Phosphatase 70 U/L (40-110); Anion Gap 21 mmol/L (10-20); BUN (Urea Nitrogen) 46 mg/dL (8.9-20.6); Bilirubin, Total 0.6 mg/dL (0.2-1.2); Calc. Creatinine Clearance 0 mL/min (70-130); Calcium 7.8 mg/dL (7.8-10.44); Carbon Dioxide 22 mmol/L (22-29); Chloride 94 mmol/L (98-107); Estimated GFR 5; Globulin 3.5 g/dL (2.4-3.5); Glucose 103 mg/dL (70-105); Protein, Total 6.4 g/dL (6.0-8.3); Sodium 132 mmol/L (136-145)
[2022-01-13] MEDS ORDERED: Cefepime 2 GM VIAL ONE (15:05)
[2022-01-13 15:06] LABS: CKMB 0.3 ng/mL (0-6.6)
[2022-01-13] MEDS ORDERED: Ketorolac Tromethamine 30 MG/ML VIAL ONE (15:47)
[2022-01-13] MEDS ORDERED: Vancomycin 1 GM/200 ML (PREMIX) BAG ONE (15:47)
[2022-01-13 17:57] LABS: Lactic Acid 1.4 mmol/L (0.5-2.2)
[2022-01-13] MEDS ORDERED: Ondansetron PF 4 MG/2 ML Vial IVP PRN (18:13)
[2022-01-13] MEDS ORDERED: Ondansetron ODT 4 MG TAB PO PRN (18:13)
[2022-01-13] MEDS ORDERED: Acetaminophen 325 MG TAB PO PRN (18:13)
[2022-01-13 18:26] LABS: CKMB 0.2 ng/mL (0-6.6)
[2022-01-13] MEDS ORDERED: Midodrine HCl 5 MG TAB PO SCH (18:45)
[2022-01-13] MEDS ORDERED: Vancomycin Dialysis Sliding Scale (Wt > 99) FS SCH (20:45)
[2022-01-13] MEDS ORDERED: Vancomycin 1.5 GRAM/300 ML BAG 1.5 GM in Premix Bag 1 BAG IVPB SCH (20:45)
[2022-01-13] MEDS ORDERED: Vancomycin 1 GM in Premix Bag 1 BAG IVPB SCH (21:00)
[2022-01-13] MEDS: Midodrine HCl 5 MG TAB PO SCH (21:14)
[2022-01-13] MEDS: Cyclobenzaprine 10 MG TAB PO SCH (21:14)
[2022-01-13] MEDS: Heparin 5,000 UNITS/ML VIAL SC SCH ×2 (21:22→21:33)
[2022-01-13 21:30] LABS: Hemoglobin A1c 4.7 % (4.0-6.0)
[2022-01-13 21:39] LABS: CKMB 0.3 ng/mL (0-6.6)
[2022-01-14] MEDS: Acetaminophen 500 MG TAB PO PRN ×3 (01:39→22:30)
[2022-01-14] MEDS ORDERED: Acetaminophen 500 MG TAB PO SCH (02:15)
[2022-01-14] MEDS ORDERED: Sodium Chloride 0.9% 250 ML IV SCH ×3 (02:45→08:30)
[2022-01-14 04:31] LABS: #Eosinphils 0.2 thou/uL (0.0-0.7); #Lymphocytes 0.4 thou/uL (1.20-3.40); #Monocytes 0.4 thou/uL (0.11-0.59); #Neutrophils 5.4 thou/uL (1.40-6.50); %Eosinophils 2.4 % (0.0-10.0); %Lymphocytes 6.1 % (21.0-51.0); %Monocytes 6.2 % (0.0-10.0); %Neutrophils 85.3 % (42.0-75.0); Hemoglobin 7.6 g/dL (14.0-18.0); Mean Corpuscular HGB CONC 31.3 g/dL (32.0-36.0); Mean Corpuscular Hemoglobin 31.9 pg (27.0-31.0); Mean Platelet Volume 8.6 fL (7.4-10.4); Platelet Count 173 10x3/uL (130-400); RBC Distribution Width 14.5 % (11.5-14.5); Red Blood Cell (RBC) Count 2.39 mill/uL (4.70-6.10); White Blood Cell (WBC) Count 6.3 10x3/uL (4.8-10.8)
[2022-01-14 05:16] LABS: ALT (SGPT) Less than 7 U/L (8-55); AST (SGOT) 8 U/L (5-34); Albumin 2.7 g/dL (3.5-5.0); Alkaline Phosphatase 66 U/L (40-110); Anion Gap 19 mmol/L (10-20); BUN (Urea Nitrogen) 49 mg/dL (8.9-20.6); Bilirubin, Total 0.5 mg/dL (0.2-1.2); Calc. Creatinine Clearance 21 mL/min (70-130); Calcium 7.8 mg/dL (7.8-10.44); Carbon Dioxide 23 mmol/L (22-29); Chloride 94 mmol/L (98-107); Estimated GFR 5; Globulin 3.8 g/dL (2.4-3.5); Glucose 99 mg/dL (70-105); Iron 21 ug/dL (65-175); Iron Binding Capacity, Total 116 mcg/dL (261-462); Magnesium 1.9 mg/dL (1.6-2.6); Potassium 4.6 mmol/L (3.5-5.1); Protein, Total 6.5 g/dL (6.0-8.3); Sodium 131 mmol/L (136-145)
[2022-01-14] MEDS: Levothyroxine Sodium 125 MCG TAB PO SCH (05:32)
[2022-01-14 06:06] LABS: Ferritin 346.05 ng/mL (22-322)
[2022-01-14 06:29] LABS: Troponin I 0.108 ng/mL (< 0.028)
[2022-01-14 07:29] LABS: Vancomycin, Random 17.5 ug/mL (See Comment)
[2022-01-14] MEDS: Sertraline 25 MG TAB PO SCH (08:02)
[2022-01-14] MEDS: Midodrine HCl 5 MG TAB PO SCH ×3 (08:02→20:50)
[2022-01-14] MEDS: Heparin 5,000 UNITS/ML VIAL SC SCH ×3 (08:03→20:50)
[2022-01-14] MEDS ORDERED: Albumin 25% 25 GM/100 ML BOT IVPB PRN (09:55)
[2022-01-14] MEDS ORDERED: Vancomycin Dialysis Sliding Scale (Wt > 99) FS SCH (11:15)
[2022-01-14] MEDS ORDERED: Iron, Sodium Ferric Gluconate 125 MG in Sodium Chloride 0.9% 100 ML IVPB SCH (12:00)
[2022-01-14] MEDS ORDERED: Epoetin (ESRD) 10,000 UNITS/ML VIAL SC SCH (12:00)
[2022-01-14] MEDS ORDERED: Heparin 10,000 UNITS/ 10 ML VIAL ONE (12:13)
[2022-01-14] MEDS: Cefepime 0.5 GM, IV Admixture Fee-Chemo 1 UNITS in Sodium Chloride 0.9% 100 ML IVPB SCH (18:44)
[2022-01-14] MEDS: Cyclobenzaprine 10 MG TAB PO SCH (20:50)
[2022-01-15] MEDS: Acetaminophen 500 MG TAB PO PRN ×2 (03:16→12:32)
[2022-01-15] MEDS: Levothyroxine Sodium 125 MCG TAB PO SCH (05:13)
[2022-01-15] MEDS ORDERED: Acetaminophen 500 MG TAB PO SCH (05:45)
[2022-01-15 07:11] LABS: #Eosinphils 0.2 thou/uL (0.0-0.7); #Lymphocytes 0.4 thou/uL (1.20-3.40); #Monocytes 0.3 thou/uL (0.11-0.59); #Neutrophils 3.7 thou/uL (1.40-6.50); %Eosinophils 3.3 % (0.0-10.0); %Lymphocytes 9.1 % (21.0-51.0); %Monocytes 7.1 % (0.0-10.0); %Neutrophils 80.5 % (42.0-75.0); Hemoglobin 7.8 g/dL (14.0-18.0); Mean Corpuscular HGB CONC 32.1 g/dL (32.0-36.0); Mean Corpuscular Hemoglobin 32.9 pg (27.0-31.0); Mean Platelet Volume 8.4 fL (7.4-10.4); Platelet Count 180 10x3/uL (130-400); RBC Distribution Width 14.5 % (11.5-14.5); Red Blood Cell (RBC) Count 2.36 mill/uL (4.70-6.10); White Blood Cell (WBC) Count 4.6 10x3/uL (4.8-10.8)
[2022-01-15 07:32] LABS: ALT (SGPT) Less than 7 U/L (8-55); AST (SGOT) 7 U/L (5-34); Alkaline Phosphatase 61 U/L (40-110); Anion Gap 17 mmol/L (10-20); BUN (Urea Nitrogen) 40 mg/dL (8.9-20.6); Bilirubin, Total 0.5 mg/dL (0.2-1.2); Calc. Creatinine Clearance 26 mL/min (70-130); Calcium 8.4 mg/dL (7.8-10.44); Carbon Dioxide 24 mmol/L (22-29); Chloride 96 mmol/L (98-107); Estimated GFR 6; Globulin 3.8 g/dL (2.4-3.5); Glucose 97 mg/dL (70-105); Phosphorus 6.8 mg/dL (2.3-4.7); Potassium 4.2 mmol/L (3.5-5.1); Protein, Total 6.8 g/dL (6.0-8.3); Sodium 133 mmol/L (136-145)
[2022-01-15] MEDS: Sertraline 25 MG TAB PO SCH (09:38)
[2022-01-15] MEDS: Heparin 5,000 UNITS/ML VIAL SC SCH ×3 (09:39→21:55)
[2022-01-15] MEDS: Midodrine HCl 5 MG TAB PO SCH ×3 (09:39→21:57)
[2022-01-15] MEDS ORDERED: Heparin 10,000 UNITS/ 10 ML VIAL ONE (12:16)
[2022-01-15] MEDS: Cefepime 0.5 GM, IV Admixture Fee-Chemo 1 UNITS in Sodium Chloride 0.9% 100 ML IVPB SCH (17:41)
[2022-01-15] MEDS: Cyclobenzaprine 10 MG TAB PO SCH (21:57)
[2022-01-15] MEDS: HYDROcodone/Acetaminophen 5/325 mg Tablet PO PRN (22:04)
[2022-01-16] MEDS: Morphine 4 MG/ML VIAL SLOW IVP PRN ×3 (01:44→20:58)
[2022-01-16 06:04] LABS: #Eosinphils 0.1 thou/uL (0.0-0.7); #Lymphocytes 0.6 thou/uL (1.20-3.40); #Monocytes 0.4 thou/uL (0.11-0.59); %Eosinophils 2.1 % (0.0-10.0); %Monocytes 8.2 % (0.0-10.0); %Neutrophils 77.8 % (42.0-75.0); Hemoglobin 8.1 g/dL (14.0-18.0); Mean Corpuscular HGB CONC 31.1 g/dL (32.0-36.0); Mean Corpuscular Hemoglobin 31.6 pg (27.0-31.0); Mean Platelet Volume 8.4 fL (7.4-10.4); Platelet Count 240 10x3/uL (130-400); RBC Distribution Width 14.7 % (11.5-14.5); Red Blood Cell (RBC) Count 2.57 mill/uL (4.70-6.10); White Blood Cell (WBC) Count 5.1 10x3/uL (4.8-10.8)
[2022-01-16] MEDS: Levothyroxine Sodium 125 MCG TAB PO SCH (06:16)
[2022-01-16 06:23] LABS: Phosphorus 7.2 mg/dL (2.3-4.7)
[2022-01-16 06:26] LABS: ALT (SGPT) Less than 7 U/L (8-55); AST (SGOT) 6 U/L (5-34); Albumin 3.2 g/dL (3.5-5.0); Alkaline Phosphatase 64 U/L (40-110); Anion Gap 17 mmol/L (10-20); BUN (Urea Nitrogen) 42 mg/dL (8.9-20.6); Bilirubin, Total 0.4 mg/dL (0.2-1.2); Calc. Creatinine Clearance 24 mL/min (70-130); Calcium 8.8 mg/dL (7.8-10.44); Carbon Dioxide 26 mmol/L (22-29); Chloride 97 mmol/L (98-107); Estimated GFR 5; Globulin 4.1 g/dL (2.4-3.5); Glucose 95 mg/dL (70-105); Potassium 4.5 mmol/L (3.5-5.1); Protein, Total 7.3 g/dL (6.0-8.3); Sodium 135 mmol/L (136-145)
[2022-01-16] MEDS: Midodrine HCl 5 MG TAB PO SCH ×3 (09:19→20:59)
[2022-01-16] MEDS: Sertraline 25 MG TAB PO SCH (09:19)
[2022-01-16] MEDS: Heparin 5,000 UNITS/ML VIAL SC SCH ×3 (09:22→20:56)
[2022-01-16] MEDS: Acetaminophen 500 MG TAB PO PRN (11:30)
[2022-01-16] MEDS ORDERED: AMIKACIN SULFATE IVPB SCH ×3 (11:30→12:00)
[2022-01-16] MEDS ORDERED: SODIUM CHLORIDE 0.9% IVPB SCH ×3 (11:30→12:00)
[2022-01-16] MEDS: Calcium Acetate 667 MG CAP PO SCH ×2 (11:31→16:24)
[2022-01-16] MEDS ORDERED: Meropenem 1 GM in Sodium Chloride 0.9% 100 ML IVPB SCH (13:00)
[2022-01-16] MEDS: HYDROcodone/Acetaminophen 5/325 mg Tablet PO PRN (16:16)
[2022-01-16] MEDS: Cyclobenzaprine 10 MG TAB PO SCH (20:59)
[2022-01-16] MEDS: Meropenem 500 MG in Sodium Chloride 0.9% 100 ML IVPB SCH (20:59)
[2022-01-17] MEDS: HYDROcodone/Acetaminophen 5/325 mg Tablet PO PRN ×2 (02:30→21:23)
[2022-01-17 04:49] LABS: #Eosinphils 0.1 thou/uL (0.0-0.7); #Lymphocytes 0.8 thou/uL (1.20-3.40); #Monocytes 0.4 thou/uL (0.11-0.59); #Neutrophils 4.2 thou/uL (1.40-6.50); %Eosinophils 2.2 % (0.0-10.0); %Lymphocytes 14.6 % (21.0-51.0); %Monocytes 6.9 % (0.0-10.0); %Neutrophils 76.3 % (42.0-75.0); Hemoglobin 8.5 g/dL (14.0-18.0); Mean Corpuscular HGB CONC 31.2 g/dL (32.0-36.0); Mean Corpuscular Hemoglobin 31.7 pg (27.0-31.0); Mean Platelet Volume 8.4 fL (7.4-10.4); Platelet Count 289 10x3/uL (130-400); Red Blood Cell (RBC) Count 2.68 mill/uL (4.70-6.10); White Blood Cell (WBC) Count 5.4 10x3/uL (4.8-10.8)
[2022-01-17 05:17] LABS: ALT (SGPT) Less than 7 U/L (8-55); AST (SGOT) 7 U/L (5-34); Albumin 3.4 g/dL (3.5-5.0); Alkaline Phosphatase 63 U/L (40-110); Anion Gap 19 mmol/L (10-20); BUN (Urea Nitrogen) 46 mg/dL (8.9-20.6); Bilirubin, Total 0.4 mg/dL (0.2-1.2); Calc. Creatinine Clearance 22 mL/min (70-130); Carbon Dioxide 25 mmol/L (22-29); Chloride 97 mmol/L (98-107); Estimated GFR 5; Globulin 4.2 g/dL (2.4-3.5); Glucose 89 mg/dL (70-105); Potassium 4.7 mmol/L (3.5-5.1); Protein, Total 7.6 g/dL (6.0-8.3); Sodium 136 mmol/L (136-145)
[2022-01-17] MEDS: Levothyroxine Sodium 125 MCG TAB PO SCH (06:53)
[2022-01-17] MEDS: Midodrine HCl 5 MG TAB PO SCH ×3 (08:41→21:22)
[2022-01-17] MEDS: Sertraline 25 MG TAB PO SCH (08:41)
[2022-01-17] MEDS ORDERED: Heparin 10,000 UNITS/ 10 ML VIAL ONE (08:41)
[2022-01-17] MEDS: Calcium Acetate 667 MG CAP PO SCH ×3 (08:41→17:11)
[2022-01-17] MEDS: Heparin 5,000 UNITS/ML VIAL SC SCH ×3 (08:41→21:21)
[2022-01-17] MEDS: Morphine 4 MG/ML VIAL SLOW IVP PRN (14:40)
[2022-01-17] MEDS: Cyclobenzaprine 10 MG TAB PO SCH (21:22)
[2022-01-17] MEDS: Meropenem 500 MG in Sodium Chloride 0.9% 100 ML IVPB SCH (21:22)
[2022-01-18] MEDS: HYDROcodone/Acetaminophen 5/325 mg Tablet PO PRN (02:16)
[2022-01-18] MEDS: Acetaminophen 500 MG TAB PO PRN (02:17)
[2022-01-18 05:16] LABS: #Eosinphils 0.1 thou/uL (0.0-0.7); #Lymphocytes 0.9 thou/uL (1.20-3.40); #Monocytes 0.3 thou/uL (0.11-0.59); #Neutrophils 3.7 thou/uL (1.40-6.50); %Basophils 0.1 % (0.0-1.0); %Eosinophils 2.9 % (0.0-10.0); %Lymphocytes 17.5 % (21.0-51.0); %Monocytes 6.2 % (0.0-10.0); %Neutrophils 73.3 % (42.0-75.0); Hemoglobin 8.1 g/dL (14.0-18.0); Mean Corpuscular HGB CONC 30.4 g/dL (32.0-36.0); Mean Corpuscular Hemoglobin 31.7 pg (27.0-31.0); Mean Platelet Volume 8.1 fL (7.4-10.4); Platelet Count 290 10x3/uL (130-400); Red Blood Cell (RBC) Count 2.56 mill/uL (4.70-6.10)
[2022-01-18 05:48] LABS: ALT (SGPT) Less than 7 U/L (8-55); AST (SGOT) 9 U/L (5-34); Albumin 3.1 g/dL (3.5-5.0); Alkaline Phosphatase 55 U/L (40-110); Anion Gap 17 mmol/L (10-20); BUN (Urea Nitrogen) 34 mg/dL (8.9-20.6); Bilirubin, Total 0.3 mg/dL (0.2-1.2); Calc. Creatinine Clearance 28 mL/min (70-130); Calcium 8.9 mg/dL (7.8-10.44); Carbon Dioxide 26 mmol/L (22-29); Chloride 96 mmol/L (98-107); Estimated GFR 7; Globulin 3.9 g/dL (2.4-3.5); Glucose 95 mg/dL (70-105); Potassium 4.3 mmol/L (3.5-5.1); Sodium 135 mmol/L (136-145)
[2022-01-18] MEDS: Levothyroxine Sodium 125 MCG TAB PO SCH (05:49)
[2022-01-18] MEDS: Heparin 5,000 UNITS/ML VIAL SC SCH ×3 (08:29→23:38)
[2022-01-18] MEDS: Midodrine HCl 5 MG TAB PO SCH ×3 (08:30→21:11)
[2022-01-18] MEDS: Sertraline 25 MG TAB PO SCH (08:30)
[2022-01-18] MEDS: Calcium Acetate 667 MG CAP PO SCH ×3 (08:31→17:39)
[2022-01-18] MEDS: Folic Acid 1 MG TAB PO SCH (08:31)
[2022-01-18 09:11] LABS: Vitamin B12 643 pg/mL (211-911)
[2022-01-18 12:17] VITALS: BMI 61.7
[2022-01-18] MEDS ORDERED: Cosyntropin 250 MCG VIAL SLOW IVP SCH (12:45)
[2022-01-18] MEDS: Morphine 4 MG/ML VIAL SLOW IVP PRN ×2 (12:55→20:43)
[2022-01-18] MEDS ORDERED: Heparin 10,000 UNITS/ 10 ML VIAL ONE ×2 (13:38)
[2022-01-18] MEDS: Meropenem 500 MG in Sodium Chloride 0.9% 100 ML IVPB SCH (21:10)
[2022-01-18] MEDS: Cyclobenzaprine 10 MG TAB PO SCH (21:11)
[2022-01-19 05:14] LABS: #Eosinphils 0.2 thou/uL (0.0-0.7); #Lymphocytes 0.8 thou/uL (1.20-3.40); #Monocytes 0.4 thou/uL (0.11-0.59); #Neutrophils 4.1 thou/uL (1.40-6.50); %Basophils 0.3 % (0.0-1.0); %Lymphocytes 14.9 % (21.0-51.0); %Monocytes 7.4 % (0.0-10.0); %Neutrophils 74.5 % (42.0-75.0); Hemoglobin 7.9 g/dL (14.0-18.0); Mean Corpuscular HGB CONC 31.3 g/dL (32.0-36.0); Mean Corpuscular Hemoglobin 32.6 pg (27.0-31.0); Platelet Count 299 10x3/uL (130-400); RBC Distribution Width 15.4 % (11.5-14.5); Red Blood Cell (RBC) Count 2.42 mill/uL (4.70-6.10); White Blood Cell (WBC) Count 5.5 10x3/uL (4.8-10.8)
[2022-01-19 05:36] LABS: ALT (SGPT) Less than 7 U/L (8-55); AST (SGOT) 7 U/L (5-34); Alkaline Phosphatase 53 U/L (40-110); Anion Gap 17 mmol/L (10-20); BUN (Urea Nitrogen) 38 mg/dL (8.9-20.6); Bilirubin, Total 0.3 mg/dL (0.2-1.2); Calc. Creatinine Clearance 26 mL/min (70-130); Carbon Dioxide 25 mmol/L (22-29); Chloride 97 mmol/L (98-107); Estimated GFR 6; Globulin 3.9 g/dL (2.4-3.5); Glucose 90 mg/dL (70-105); Potassium 4.7 mmol/L (3.5-5.1); Protein, Total 6.9 g/dL (6.0-8.3); Sodium 134 mmol/L (136-145)
[2022-01-19] MEDS: Levothyroxine Sodium 125 MCG TAB PO SCH (06:36)
[2022-01-19] MEDS: Morphine 4 MG/ML VIAL SLOW IVP PRN ×2 (06:36→15:02)
[2022-01-19] MEDS ORDERED: Heparin 10,000 UNITS/ 10 ML VIAL ONE (08:21)
[2022-01-19] MEDS: Midodrine HCl 5 MG TAB PO SCH ×2 (09:15→15:02)
[2022-01-19] MEDS: Heparin 5,000 UNITS/ML VIAL SC SCH ×2 (09:16→15:07)
[2022-01-19] MEDS: Folic Acid 1 MG TAB PO SCH (14:57)
[2022-01-19] MEDS: Sertraline 25 MG TAB PO SCH (14:57)
[2022-01-19] MEDS: Calcium Acetate 667 MG CAP PO SCH ×2 (14:57→17:10)
[2022-01-19 16:21] VITALS: BP 88/51; TEMP 98.2
== END 2022-01-19 17:31 | disposition home or self-care (01) | DRG 862 ==
LOC: ERS 13:41 → 2SW 17:06 → 2NO 17:34 → OBSVTOIN 01-14 11:06 → 2NO 01-15 14:36
PROVIDERS: ADMIT Internal Medicine; ATTEND Internal Medicine
PROC: 5A1D70Z Performance of Urinary Filtration, Intermittent, Less than 6 Hours Per Day (ICD-10-PCS; principal; 2022-01-14)
DX: T81.49XA Infection following a procedure, other surgical site, initial encounter (principal); J96.01 Acute respiratory failure with hypoxia; Z20.822 Contact with and (suspected) exposure to COVID-19; N18.6 End stage renal disease; R78.81 Bacteremia; I12.0 Hypertensive chronic kidney disease with stage 5 chronic kidney disease or end stage renal disease; L97.329 Non-pressure chronic ulcer of left ankle with unspecified severity; B96.1 Klebsiella pneumoniae [K. pneumoniae] as the cause of diseases classified elsewhere; I73.9 Peripheral vascular disease, unspecified; K21.9 Gastro-esophageal reflux disease without esophagitis; F17.210 Nicotine dependence, cigarettes, uncomplicated; I95.89 Other hypotension; D63.1 Anemia in chronic kidney disease; R77.8 Other specified abnormalities of plasma proteins; Y83.8 Other surgical procedures as the cause of abnormal reaction of the patient, or of later complication, without mention of misadventure at the time of the procedure; Z99.2 Dependence on renal dialysis; Z88.0 Allergy status to penicillin; Z79.899 Other long term (current) drug therapy; Z79.890 Hormone replacement therapy; Q82.0 Hereditary lymphedema; Z82.49 Family history of ischemic heart disease and other diseases of the circulatory system; Z83.3 Family history of diabetes mellitus; Z80.9 Family history of malignant neoplasm, unspecified
CPT/HCPCS: 36415; 71045; 80053; 80202; 80400; 82533; 82553; 82607; 82728; 83036; 83540; 83550; 83605; 83735; 83880; 84100; 84145; 84439; 84443; 84481; 84484; 85025; 87040; 87070; 87077; 87186; 87205; 90935; 93005; 96365; 96375; 96376; 97139; G0257; G0378; J0278; J0692; J1644; J1885; J2185; J2270; J2916; J3370; J3490; J7030; Q4081; U0003; U0005

== ENCOUNTER 2022-02-12 15:08 | Inpatient (IN) | payer MEDICARE, MEDICAID ==
[2022-02-12 16:43] LABS: ALT (SGPT) Less than 7 U/L (8-55); AST (SGOT) 7 U/L (5-34); Albumin 3.1 g/dL (3.5-5.0); Alkaline Phosphatase 51 U/L (40-110); Anion Gap 16 mmol/L (10-20); BUN (Urea Nitrogen) 25 mg/dL (8.9-20.6); Bilirubin, Total 0.5 mg/dL (0.2-1.2); Calc. Creatinine Clearance 0 mL/min (70-130); Calcium 8.5 mg/dL (7.8-10.44); Carbon Dioxide 25 mmol/L (22-29); Chloride 98 mmol/L (98-107); Estimated GFR 9; Glucose 93 mg/dL (70-105); Potassium 4.1 mmol/L (3.5-5.1); Protein, Total 7.1 g/dL (6.0-8.3); Sodium 135 mmol/L (136-145)
[2022-02-12 16:46] LABS: #Eosinphils 0.2 thou/uL (0.0-0.7); #Lymphocytes 0.6 thou/uL (1.20-3.40); #Monocytes 0.6 thou/uL (0.11-0.59); #Neutrophils 4.5 thou/uL (1.40-6.50); %Basophils 0.2 % (0.0-1.0); %Eosinophils 3.6 % (0.0-10.0); %Lymphocytes 10.8 % (21.0-51.0); %Monocytes 9.6 % (0.0-10.0); %Neutrophils 75.8 % (42.0-75.0); Hemoglobin 7.8 g/dL (14.0-18.0); Mean Corpuscular HGB CONC 31.8 g/dL (32.0-36.0); Mean Corpuscular Hemoglobin 32.3 pg (27.0-31.0); Mean Platelet Volume 7.6 fL (7.4-10.4); Platelet Count 234 10x3/uL (130-400); RBC Distribution Width 15.2 % (11.5-14.5); Red Blood Cell (RBC) Count 2.42 mill/uL (4.70-6.10); White Blood Cell (WBC) Count 5.9 10x3/uL (4.8-10.8)
[2022-02-12] MEDS ORDERED: Vancomycin 1 GM/200 ML (FROZEN) BAG ONE (17:47)
[2022-02-12] MEDS ORDERED: FENTANYL 50 MCG/ML 1 ML VIAL ONE (17:56)
[2022-02-12 20:13] VITALS: BMI 59.9
[2022-02-12] MEDS ORDERED: FENTANYL 50 MCG/ML 1 ML VIAL SLOW IVP SCH (22:45)
[2022-02-12] MEDS ORDERED: Morphine 4 MG/ML VIAL SLOW IVP SCH (22:45)
[2022-02-12] MEDS ORDERED: Ondansetron ODT 4 MG TAB PO PRN (23:50)
[2022-02-12] MEDS ORDERED: Acetaminophen 325 MG TAB PO PRN (23:59)
[2022-02-12] MEDS ORDERED: Acetaminophen 650 MG Suppository PR PRN (23:59)
[2022-02-12] MEDS ORDERED: Ondansetron PF 4 MG/2 ML Vial IVP PRN (23:59)
[2022-02-12] MEDS ORDERED: Guaifenesin DM 100-10/5 ML UDCUP PO PRN (23:59)
[2022-02-13] MEDS ORDERED: Vancomycin 1.5 GRAM/300 ML BAG 1.5 GM in Premix Bag 1 BAG IVPB SCH (00:15)
[2022-02-13] MEDS ORDERED: Vancomycin Dialysis Sliding Scale (Wt > 99) FS SCH (00:30)
[2022-02-13] MEDS: HYDROcodone/Acetaminophen 10/325 mg Tablet PO PRN ×4 (01:20→19:55)
[2022-02-13] MEDS ORDERED: Cefepime 1 GM in Sodium Chloride 0.9% 100 ML IVPB SCH (02:00)
[2022-02-13] MEDS: Levothyroxine Sodium 125 MCG TAB PO SCH (05:50)
[2022-02-13 06:45] LABS: #Eosinphils 0.2 thou/uL (0.0-0.7); #Lymphocytes 0.9 thou/uL (1.20-3.40); #Monocytes 0.5 thou/uL (0.11-0.59); #Neutrophils 3.5 thou/uL (1.40-6.50); %Eosinophils 4.4 % (0.0-10.0); %Lymphocytes 17.6 % (21.0-51.0); %Monocytes 10.3 % (0.0-10.0); %Neutrophils 67.7 % (42.0-75.0); Hemoglobin 7.6 g/dL (14.0-18.0); Mean Corpuscular HGB CONC 30.5 g/dL (32.0-36.0); Mean Corpuscular Hemoglobin 31.2 pg (27.0-31.0); Mean Platelet Volume 7.8 fL (7.4-10.4); Platelet Count 247 10x3/uL (130-400); RBC Distribution Width 15.2 % (11.5-14.5); Red Blood Cell (RBC) Count 2.43 mill/uL (4.70-6.10); White Blood Cell (WBC) Count 5.1 10x3/uL (4.8-10.8)
[2022-02-13 07:08] LABS: Anion Gap 15 mmol/L (10-20); BUN (Urea Nitrogen) 30 mg/dL (8.9-20.6); Calc. Creatinine Clearance 33 mL/min (70-130); Calcium 8.4 mg/dL (7.8-10.44); Carbon Dioxide 27 mmol/L (22-29); Chloride 96 mmol/L (98-107); Estimated GFR 8; Glucose 108 mg/dL (70-105); Potassium 4.1 mmol/L (3.5-5.1); Sodium 134 mmol/L (136-145)
[2022-02-13] MEDS: Calcitriol 0.25 MCG CAP PO SCH (08:23)
[2022-02-13] MEDS: Senokot S 8.6-50 MG TAB PO SCH ×2 (08:23→20:07)
[2022-02-13] MEDS: Sevelamer Carbonate 800 MG TAB PO SCH ×3 (08:23→16:46)
[2022-02-13] MEDS: Midodrine HCl 5 MG TAB PO SCH ×3 (08:23→19:54)
[2022-02-13] MEDS: Folic Acid 1 MG TAB PO SCH (08:23)
[2022-02-13] MEDS: Heparin 5,000 UNITS/ML VIAL SC SCH ×3 (08:24→20:07)
[2022-02-13] MEDS ORDERED: Cefepime 2 GM in Sodium Chloride 0.9% 100 ML IVPB SCH (09:00)
[2022-02-13] MEDS: Cefepime 0.5 GM, Admixture Fee 1 EACH in Sodium Chloride 0.9% 100 ML IVPB SCH (19:53)
[2022-02-13] MEDS: Folic Acid/Vit B Comp W-C PO SCH (19:54)
[2022-02-13] MEDS: Cyclobenzaprine 10 MG TAB PO SCH (19:54)
[2022-02-13] MEDS ORDERED: FENTANYL 50 MCG/ML 1 ML VIAL SLOW IVP SCH (20:15)
[2022-02-14] MEDS: HYDROcodone/Acetaminophen 10/325 mg Tablet PO PRN (02:42)
[2022-02-14] MEDS: Levothyroxine Sodium 125 MCG TAB PO SCH (05:06)
[2022-02-14 07:35] LABS: Vancomycin, Random 14.4 ug/mL (See Comment)
[2022-02-14] MEDS: Midodrine HCl 5 MG TAB PO SCH ×4 (08:36→19:58)
[2022-02-14] MEDS: Folic Acid 1 MG TAB PO SCH (08:36)
[2022-02-14] MEDS: Calcitriol 0.25 MCG CAP PO SCH (08:37)
[2022-02-14] MEDS: Senokot S 8.6-50 MG TAB PO SCH ×2 (08:37→20:00)
[2022-02-14] MEDS: Heparin 5,000 UNITS/ML VIAL SC SCH ×2 (08:37→20:00)
[2022-02-14] MEDS: Sevelamer Carbonate 800 MG TAB PO SCH ×3 (08:37→18:25)
[2022-02-14] MEDS: Morphine 4 MG/ML VIAL SLOW IVP PRN ×3 (09:01→19:56)
[2022-02-14] MEDS ORDERED: EPOETIN ALFA-EPBX (ESRD) 10,000 UNIT/ML VIAL SC SCH (10:00)
[2022-02-14] MEDS ORDERED: Heparin 10,000 UNITS/ 10 ML VIAL ONE (14:02)
[2022-02-14] MEDS ORDERED: Vancomycin 1 GM in Premix Bag 1 BAG IVPB SCH (17:00)
[2022-02-14] MEDS ORDERED: Cephalexin 250 MG CAP PO SCH (18:00)
[2022-02-14] MEDS: Folic Acid/Vit B Comp W-C PO SCH (19:58)
[2022-02-14] MEDS: Cyclobenzaprine 10 MG TAB PO SCH (20:07)
[2022-02-14] MEDS: Cefepime 0.5 GM, Admixture Fee 1 EACH in Sodium Chloride 0.9% 100 ML IVPB SCH (20:32)
[2022-02-15] MEDS: Morphine 4 MG/ML VIAL SLOW IVP PRN ×4 (02:33→21:19)
[2022-02-15] MEDS: Levothyroxine Sodium 125 MCG TAB PO SCH (05:23)
[2022-02-15] MEDS: Calcitriol 0.25 MCG CAP PO SCH (08:30)
[2022-02-15] MEDS: Folic Acid 1 MG TAB PO SCH (08:30)
[2022-02-15] MEDS: Sevelamer Carbonate 800 MG TAB PO SCH ×3 (08:30→17:48)
[2022-02-15] MEDS: Midodrine HCl 5 MG TAB PO SCH ×3 (08:30→20:28)
[2022-02-15] MEDS: Heparin 5,000 UNITS/ML VIAL SC SCH ×2 (08:32→20:28)
[2022-02-15] MEDS: Senokot S 8.6-50 MG TAB PO SCH ×2 (08:32→20:28)
[2022-02-15] MEDS: HYDROcodone/Acetaminophen 10/325 mg Tablet PO PRN (10:52)
[2022-02-15] MEDS ORDERED: Heparin 10,000 UNITS/ 10 ML VIAL ONE (14:41)
[2022-02-15] MEDS: Cefepime 0.5 GM, Admixture Fee 1 EACH in Sodium Chloride 0.9% 100 ML IVPB SCH (20:27)
[2022-02-15] MEDS: Folic Acid/Vit B Comp W-C PO SCH (20:28)
[2022-02-15] MEDS: Cyclobenzaprine 10 MG TAB PO SCH (20:28)
[2022-02-16] MEDS: Morphine 4 MG/ML VIAL SLOW IVP PRN ×5 (01:34→23:30)
[2022-02-16] MEDS: Levothyroxine Sodium 125 MCG TAB PO SCH (05:21)
[2022-02-16 07:01] LABS: #Eosinphils 0.2 thou/uL (0.0-0.7); #Lymphocytes 0.7 thou/uL (1.20-3.40); #Monocytes 0.5 thou/uL (0.11-0.59); #Neutrophils 4.5 thou/uL (1.40-6.50); %Basophils 0.4 % (0.0-1.0); %Eosinophils 3.4 % (0.0-10.0); %Lymphocytes 11.3 % (21.0-51.0); %Monocytes 8.9 % (0.0-10.0); %Neutrophils 76.1 % (42.0-75.0); Hemoglobin 7.3 g/dL (14.0-18.0); Mean Corpuscular HGB CONC 31.3 g/dL (32.0-36.0); Mean Corpuscular Hemoglobin 31.5 pg (27.0-31.0); Mean Platelet Volume 7.5 fL (7.4-10.4); Platelet Count 257 10x3/uL (130-400); RBC Distribution Width 15.2 % (11.5-14.5); Red Blood Cell (RBC) Count 2.32 mill/uL (4.70-6.10); White Blood Cell (WBC) Count 5.9 10x3/uL (4.8-10.8)
[2022-02-16 07:11] LABS: Anion Gap 16 mmol/L (10-20); BUN (Urea Nitrogen) 24 mg/dL (8.9-20.6); Calc. Creatinine Clearance 38 mL/min (70-130); Calcium 8.5 mg/dL (7.8-10.44); Carbon Dioxide 26 mmol/L (22-29); Chloride 98 mmol/L (98-107); Estimated GFR 10; Glucose 102 mg/dL (70-105); Potassium 4.1 mmol/L (3.5-5.1); Sodium 136 mmol/L (136-145)
[2022-02-16] MEDS: Sevelamer Carbonate 800 MG TAB PO SCH ×3 (08:04→16:38)
[2022-02-16] MEDS: Midodrine HCl 5 MG TAB PO SCH ×2 (08:04→20:04)
[2022-02-16] MEDS: Heparin 5,000 UNITS/ML VIAL SC SCH ×2 (08:04→20:05)
[2022-02-16] MEDS: Folic Acid 1 MG TAB PO SCH (08:04)
[2022-02-16] MEDS: Calcitriol 0.25 MCG CAP PO SCH (08:04)
[2022-02-16] MEDS: Senokot S 8.6-50 MG TAB PO SCH ×2 (08:04→20:05)
[2022-02-16] MEDS: HYDROcodone/Acetaminophen 10/325 mg Tablet PO PRN (09:21)
[2022-02-16] MEDS ORDERED: Midodrine HCl 5 MG TAB PO SCH (11:45)
[2022-02-16] MEDS ORDERED: Heparin 10,000 UNITS/1 ML VIAL ONE (14:36)
[2022-02-16] MEDS: Cyclobenzaprine 10 MG TAB PO SCH (20:04)
[2022-02-16] MEDS: Folic Acid/Vit B Comp W-C PO SCH (20:04)
[2022-02-17] MEDS: Morphine 4 MG/ML VIAL SLOW IVP PRN ×4 (04:17→20:59)
[2022-02-17] MEDS: Levothyroxine Sodium 125 MCG TAB PO SCH (05:15)
[2022-02-17 06:20] LABS: #Eosinphils 0.2 thou/uL (0.0-0.7); #Lymphocytes 0.7 thou/uL (1.20-3.40); #Monocytes 0.5 thou/uL (0.11-0.59); #Neutrophils 4.6 thou/uL (1.40-6.50); %Basophils 0.2 % (0.0-1.0); %Eosinophils 2.9 % (0.0-10.0); %Monocytes 8.7 % (0.0-10.0); %Neutrophils 76.2 % (42.0-75.0); Hemoglobin 7.2 g/dL (14.0-18.0); Mean Corpuscular HGB CONC 30.6 g/dL (32.0-36.0); Mean Corpuscular Hemoglobin 30.7 pg (27.0-31.0); Mean Platelet Volume 7.3 fL (7.4-10.4); Platelet Count 230 10x3/uL (130-400); Red Blood Cell (RBC) Count 2.36 mill/uL (4.70-6.10)
[2022-02-17 06:41] LABS: Anion Gap 14 mmol/L (10-20); BUN (Urea Nitrogen) 22 mg/dL (8.9-20.6); Calc. Creatinine Clearance 42 mL/min (70-130); Calcium 8.6 mg/dL (7.8-10.44); Carbon Dioxide 28 mmol/L (22-29); Chloride 97 mmol/L (98-107); Estimated GFR 11; Glucose 101 mg/dL (70-105); Potassium 3.9 mmol/L (3.5-5.1); Sodium 135 mmol/L (136-145)
[2022-02-17] MEDS: Sevelamer Carbonate 800 MG TAB PO SCH ×3 (07:50→16:11)
[2022-02-17] MEDS: Senokot S 8.6-50 MG TAB PO SCH ×2 (07:51→21:07)
[2022-02-17] MEDS: Folic Acid 1 MG TAB PO SCH (07:51)
[2022-02-17] MEDS: Midodrine HCl 5 MG TAB PO SCH ×3 (07:51→20:58)
[2022-02-17] MEDS: Calcitriol 0.25 MCG CAP PO SCH (07:51)
[2022-02-17] MEDS: HYDROcodone/Acetaminophen 10/325 mg Tablet PO PRN ×2 (07:54→16:10)
[2022-02-17] MEDS: Heparin 5,000 UNITS/ML VIAL SC SCH ×2 (07:56→21:07)
[2022-02-17] MEDS ORDERED: Heparin 10,000 UNITS/ 10 ML VIAL ONE (10:40)
[2022-02-17] MEDS ORDERED: Albumin 25% 25 GM/100 ML BOT IVPB SCH ×2 (11:30→13:45)
[2022-02-17 14:24] LABS: Hep B Core Total Ab Non-Reactive (NonReactive); Hep B Surf Ag Non-Reactive S/CO (NonReactive); Hep C IgG Ab Non-Reactive (NonReactive); Hep C Index 0.13 S/CO (0-0.79)
[2022-02-17 14:26] LABS: HBSAB Concentration 19.04 mIU/mL; Hep B Surf AB Reactive (NonReactive)
[2022-02-17] MEDS: Cyclobenzaprine 10 MG TAB PO SCH (20:58)
[2022-02-17] MEDS: Folic Acid/Vit B Comp W-C PO SCH (20:58)
[2022-02-18] MEDS: Morphine 4 MG/ML VIAL SLOW IVP PRN ×2 (01:21→09:36)
[2022-02-18] MEDS: Levothyroxine Sodium 125 MCG TAB PO SCH (05:32)
[2022-02-18] MEDS: HYDROcodone/Acetaminophen 10/325 mg Tablet PO PRN ×2 (05:32→20:26)
[2022-02-18 08:14] LABS: #Eosinphils 0.2 thou/uL (0.0-0.7); #Lymphocytes 0.7 thou/uL (1.20-3.40); #Monocytes 0.4 thou/uL (0.11-0.59); #Neutrophils 4.2 thou/uL (1.40-6.50); %Lymphocytes 12.6 % (21.0-51.0); %Monocytes 7.7 % (0.0-10.0); %Neutrophils 76.8 % (42.0-75.0); Hemoglobin 7.3 g/dL (14.0-18.0); Mean Corpuscular HGB CONC 31.3 g/dL (32.0-36.0); Mean Corpuscular Hemoglobin 31.3 pg (27.0-31.0); Mean Platelet Volume 7.2 fL (7.4-10.4); Platelet Count 224 10x3/uL (130-400); RBC Distribution Width 15.2 % (11.5-14.5); Red Blood Cell (RBC) Count 2.34 mill/uL (4.70-6.10); White Blood Cell (WBC) Count 5.5 10x3/uL (4.8-10.8)
[2022-02-18] MEDS: Midodrine HCl 5 MG TAB PO SCH ×3 (08:19→20:17)
[2022-02-18] MEDS: Folic Acid 1 MG TAB PO SCH (08:20)
[2022-02-18] MEDS: Senokot S 8.6-50 MG TAB PO SCH ×2 (08:20→20:18)
[2022-02-18] MEDS: Sevelamer Carbonate 800 MG TAB PO SCH ×3 (08:20→16:38)
[2022-02-18] MEDS: Calcitriol 0.25 MCG CAP PO SCH (08:20)
[2022-02-18] MEDS: Heparin 5,000 UNITS/ML VIAL SC SCH ×2 (08:20→20:18)
[2022-02-18 08:55] LABS: Anion Gap 15 mmol/L (10-20); BUN (Urea Nitrogen) 29 mg/dL (8.9-20.6); Calc. Creatinine Clearance 36 mL/min (70-130); Calcium 8.8 mg/dL (7.8-10.44); Carbon Dioxide 28 mmol/L (22-29); Chloride 97 mmol/L (98-107); Estimated GFR 9; Glucose 89 mg/dL (70-105); Potassium 4.2 mmol/L (3.5-5.1); Sodium 136 mmol/L (136-145)
[2022-02-18] MEDS ORDERED: Heparin 10,000 UNITS/ 10 ML VIAL ONE (10:42)
[2022-02-18] MEDS ORDERED: Albumin 25% 25 GM/100 ML BOT IVPB SCH (11:45)
[2022-02-18] MEDS ORDERED: Gentamicin 280 MG in Sodium Chloride 0.9% 100 ML IVPB SCH (17:00)
[2022-02-18] MEDS ORDERED: SODIUM CHLORIDE 0.9% IVPB SCH (17:00)
[2022-02-18] MEDS ORDERED: GENTAMICIN IVPB SCH (17:00)
[2022-02-18] MEDS: Folic Acid/Vit B Comp W-C PO SCH (20:17)
[2022-02-18] MEDS: Cyclobenzaprine 10 MG TAB PO SCH (20:18)
[2022-02-19] MEDS: Morphine 4 MG/ML VIAL SLOW IVP PRN ×2 (01:00→13:24)
[2022-02-19] MEDS: Levothyroxine Sodium 125 MCG TAB PO SCH (05:05)
[2022-02-19] MEDS: HYDROcodone/Acetaminophen 10/325 mg Tablet PO PRN ×2 (05:05→20:27)
[2022-02-19] MEDS: Senokot S 8.6-50 MG TAB PO SCH ×2 (08:56→20:29)
[2022-02-19] MEDS: Heparin 5,000 UNITS/ML VIAL SC SCH ×2 (08:56→20:29)
[2022-02-19] MEDS: Sevelamer Carbonate 800 MG TAB PO SCH ×3 (08:57→20:26)
[2022-02-19] MEDS: Midodrine HCl 5 MG TAB PO SCH ×3 (08:58→20:27)
[2022-02-19] MEDS: Folic Acid 1 MG TAB PO SCH (08:58)
[2022-02-19] MEDS: Calcitriol 0.25 MCG CAP PO SCH (08:58)
[2022-02-19] MEDS ORDERED: Heparin 10,000 UNITS/ 10 ML VIAL ONE ×2 (10:38→10:39)
[2022-02-19] MEDS ORDERED: Albumin 25% 25 GM/100 ML BOT IVPB SCH (15:30)
[2022-02-19] MEDS ORDERED: Midodrine HCl 5 MG TAB PO SCH (16:30)
[2022-02-19] MEDS: Folic Acid/Vit B Comp W-C PO SCH (20:27)
[2022-02-19] MEDS: Cyclobenzaprine 10 MG TAB PO SCH (20:28)
[2022-02-20] MEDS: Morphine 4 MG/ML VIAL SLOW IVP PRN ×3 (00:59→20:08)
[2022-02-20] MEDS: HYDROcodone/Acetaminophen 10/325 mg Tablet PO PRN (05:37)
[2022-02-20] MEDS: Levothyroxine Sodium 125 MCG TAB PO SCH (05:37)
[2022-02-20 07:16] LABS: #Eosinphils 0.2 thou/uL (0.0-0.7); #Lymphocytes 0.6 thou/uL (1.20-3.40); #Monocytes 0.4 thou/uL (0.11-0.59); #Neutrophils 5.1 thou/uL (1.40-6.50); %Eosinophils 3.2 % (0.0-10.0); %Neutrophils 80.8 % (42.0-75.0); Hemoglobin 6.9 g/dL (14.0-18.0); Mean Corpuscular HGB CONC 31.2 g/dL (32.0-36.0); Mean Corpuscular Hemoglobin 31.4 pg (27.0-31.0); Mean Platelet Volume 7.5 fL (7.4-10.4); Platelet Count 229 10x3/uL (130-400); RBC Distribution Width 15.1 % (11.5-14.5); White Blood Cell (WBC) Count 6.3 10x3/uL (4.8-10.8)
[2022-02-20 07:41] LABS: Albumin 2.9 g/dL (3.5-5.0); Anion Gap 14 mmol/L (10-20); BUN (Urea Nitrogen) 23 mg/dL (8.9-20.6); BUN/Creatinine Ratio 3.82; Calc. Creatinine Clearance 44 mL/min (70-130); Calcium 8.6 mg/dL (7.8-10.44); Carbon Dioxide 27 mmol/L (22-29); Chloride 97 mmol/L (98-107); Estimated GFR 12; Glucose 115 mg/dL (70-105); Iron 24 ug/dL (65-175); Iron Binding Capacity, Total 154 mcg/dL (261-462); Phosphorus 5.1 mg/dL (2.3-4.7); Potassium 3.8 mmol/L (3.5-5.1); Sodium 134 mmol/L (136-145)
[2022-02-20] MEDS ORDERED: Iron, Sodium Ferric Gluconate 250 MG in Sodium Chloride 0.9% 250 ML 250 ML IVPB SCH (08:30)
[2022-02-20] MEDS: Sevelamer Carbonate 800 MG TAB PO SCH ×3 (08:45→18:10)
[2022-02-20] MEDS: Calcitriol 0.25 MCG CAP PO SCH (08:45)
[2022-02-20] MEDS: Midodrine HCl 5 MG TAB PO SCH ×3 (08:45→20:11)
[2022-02-20] MEDS: Senokot S 8.6-50 MG TAB PO SCH ×2 (08:45→20:11)
[2022-02-20] MEDS: Folic Acid 1 MG TAB PO SCH (08:46)
[2022-02-20] MEDS ORDERED: Iron Sucrose Complex 500 MG in Sodium Chloride 0.9% 250 ML 250 ML IVPB SCH (11:00)
[2022-02-20] MEDS: Iron Sucrose Complex 200 MG in Sodium Chloride 0.9% 250 ML 250 ML IVPB SCH (15:00)
[2022-02-20] MEDS: Folic Acid/Vit B Comp W-C PO SCH (20:10)
[2022-02-20] MEDS: Cyclobenzaprine 10 MG TAB PO SCH (20:11)
[2022-02-21] MEDS: Morphine 4 MG/ML VIAL SLOW IVP PRN ×3 (04:23→21:56)
[2022-02-21] MEDS ORDERED: Morphine 4 MG/ML VIAL SLOW IVP PRN (05:46)
[2022-02-21] MEDS: Levothyroxine Sodium 125 MCG TAB PO SCH (06:08)
[2022-02-21 06:52] LABS: #Eosinphils 0.2 thou/uL (0.0-0.7); #Lymphocytes 0.6 thou/uL (1.20-3.40); #Monocytes 0.4 thou/uL (0.11-0.59); #Neutrophils 4.8 thou/uL (1.40-6.50); %Eosinophils 2.9 % (0.0-10.0); %Lymphocytes 9.4 % (21.0-51.0); %Monocytes 6.9 % (0.0-10.0); %Neutrophils 80.9 % (42.0-75.0); Hemoglobin 6.8 g/dL (14.0-18.0); Mean Corpuscular HGB CONC 30.1 g/dL (32.0-36.0); Mean Corpuscular Hemoglobin 30.2 pg (27.0-31.0); Mean Platelet Volume 7.5 fL (7.4-10.4); Platelet Count 228 10x3/uL (130-400); Red Blood Cell (RBC) Count 2.25 mill/uL (4.70-6.10); White Blood Cell (WBC) Count 5.9 10x3/uL (4.8-10.8)
[2022-02-21 07:11] LABS: Anion Gap 13 mmol/L (10-20); BUN (Urea Nitrogen) 29 mg/dL (8.9-20.6); Calc. Creatinine Clearance 38 mL/min (70-130); Calcium 8.8 mg/dL (7.8-10.44); Carbon Dioxide 26 mmol/L (22-29); Chloride 95 mmol/L (98-107); Estimated GFR 10; Glucose 101 mg/dL (70-105); Potassium 4.1 mmol/L (3.5-5.1); Sodium 130 mmol/L (136-145)
[2022-02-21] MEDS: Midodrine HCl 5 MG TAB PO SCH ×3 (08:35→21:53)
[2022-02-21] MEDS: Sevelamer Carbonate 800 MG TAB PO SCH ×3 (08:35→23:42)
[2022-02-21] MEDS: Calcitriol 0.25 MCG CAP PO SCH (08:36)
[2022-02-21] MEDS: Folic Acid 1 MG TAB PO SCH (08:36)
[2022-02-21] MEDS: Senokot S 8.6-50 MG TAB PO SCH ×2 (08:45→21:58)
[2022-02-21] MEDS ORDERED: Heparin 10,000 UNITS/ 10 ML VIAL ONE (10:24)
[2022-02-21] MEDS: HYDROcodone/Acetaminophen 10/325 mg Tablet PO PRN ×2 (14:02→19:53)
[2022-02-21] MEDS ORDERED: Gentamicin 280 MG in Sodium Chloride 0.9% 100 ML IVPB SCH (17:00)
[2022-02-21] MEDS: Cyclobenzaprine 10 MG TAB PO SCH (21:53)
[2022-02-21] MEDS: Folic Acid/Vit B Comp W-C PO SCH (21:55)
[2022-02-21] MEDS: Iron Sucrose Complex 200 MG in Sodium Chloride 0.9% 250 ML 250 ML IVPB SCH (23:00)
[2022-02-22] MEDS: Morphine 4 MG/ML VIAL SLOW IVP PRN ×3 (01:58→11:53)
[2022-02-22] MEDS: Levothyroxine Sodium 125 MCG TAB PO SCH (06:16)
[2022-02-22] MEDS: Sevelamer Carbonate 800 MG TAB PO SCH ×3 (08:23→18:23)
[2022-02-22] MEDS: Midodrine HCl 5 MG TAB PO SCH ×2 (08:23→15:54)
[2022-02-22] MEDS: Senokot S 8.6-50 MG TAB PO SCH (08:23)
[2022-02-22] MEDS ORDERED: EPOETIN ALFA-EPBX (ESRD) 10,000 UNIT/ML VIAL SC SCH (08:24)
[2022-02-22] MEDS: Calcitriol 0.25 MCG CAP PO SCH (08:24)
[2022-02-22] MEDS: Folic Acid 1 MG TAB PO SCH (08:24)
[2022-02-22 08:36] LABS: #Basophils 0.1 thou/uL (0.0-0.2); #Eosinphils 0.2 thou/uL (0.0-0.7); #Lymphocytes 0.6 thou/uL (1.20-3.40); #Monocytes 0.5 thou/uL (0.11-0.59); #Neutrophils 5.6 thou/uL (1.40-6.50); %Basophils 0.8 % (0.0-1.0); %Eosinophils 3.3 % (0.0-10.0); %Lymphocytes 8.8 % (21.0-51.0); %Monocytes 6.9 % (0.0-10.0); %Neutrophils 80.2 % (42.0-75.0); Mean Corpuscular HGB CONC 31.4 g/dL (32.0-36.0); Mean Corpuscular Hemoglobin 30.7 pg (27.0-31.0); Mean Corpuscular Volume 97.7 fl (78.0-98.0); Mean Platelet Volume 7.3 fL (7.4-10.4); Platelet Count 237 10x3/uL (130-400); RBC Distribution Width 15.5 % (11.5-14.5); Red Blood Cell (RBC) Count 2.59 mill/uL (4.70-6.10)
[2022-02-22 08:52] LABS: Anion Gap 15 mmol/L (10-20); BUN (Urea Nitrogen) 25 mg/dL (8.9-20.6); Calc. Creatinine Clearance 44 mL/min (70-130); Calcium 8.8 mg/dL (7.8-10.44); Carbon Dioxide 27 mmol/L (22-29); Chloride 96 mmol/L (98-107); Estimated GFR 12; Glucose 98 mg/dL (70-105); Potassium 3.8 mmol/L (3.5-5.1); Sodium 134 mmol/L (136-145)
[2022-02-22] MEDS ORDERED: Heparin 10,000 UNITS/ 10 ML VIAL ONE (14:03)
[2022-02-22] MEDS: HYDROcodone/Acetaminophen 10/325 mg Tablet PO PRN (14:04)
[2022-02-22] MEDS: Iron Sucrose Complex 200 MG in Sodium Chloride 0.9% 250 ML 250 ML IVPB SCH (14:36)
[2022-02-22 20:19] VITALS: BP 125/61; TEMP 98.5
[2022-02-22] MEDS ORDERED: Nystatin Powder 15 GM BOT TOP SCH (21:00)
[2022-02-23] MEDS ORDERED: Gentamicin 280 MG in Sodium Chloride 0.9% 100 ML IVPB SCH (17:00)
== END 2022-02-22 19:43 | disposition home or self-care (01) | DRG 602 ==
LOC: ERS 15:08 → T4-B 17:46 → INTOOBSV 17:46 → OBSVTOIN 02-21 12:23
PROVIDERS: ADMIT Internal Medicine; ATTEND Family Medicine
PROC: 30233J1 Transfusion of Nonautologous Serum Albumin into Peripheral Vein, Percutaneous Approach (ICD-10-PCS; 2022-02-18)
PROC: 30233N1 Transfusion of Nonautologous Red Blood Cells into Peripheral Vein, Percutaneous Approach (ICD-10-PCS; principal; 2022-02-21)
PROC: 5A1D70Z Performance of Urinary Filtration, Intermittent, Less than 6 Hours Per Day (ICD-10-PCS; 2022-02-21)
DX: L03.116 Cellulitis of left lower limb (principal); N18.6 End stage renal disease; Z68.43 Body mass index [BMI] 50.0-59.9, adult; I12.0 Hypertensive chronic kidney disease with stage 5 chronic kidney disease or end stage renal disease; L97.912 Non-pressure chronic ulcer of unspecified part of right lower leg with fat layer exposed; L97.922 Non-pressure chronic ulcer of unspecified part of left lower leg with fat layer exposed; Z16.29 Resistance to other single specified antibiotic; L03.115 Cellulitis of right lower limb; K21.9 Gastro-esophageal reflux disease without esophagitis; I48.0 Paroxysmal atrial fibrillation; I73.9 Peripheral vascular disease, unspecified; D63.1 Anemia in chronic kidney disease; E66.01 Morbid (severe) obesity due to excess calories; F17.210 Nicotine dependence, cigarettes, uncomplicated; I95.89 Other hypotension; E65 Localized adiposity; B96.1 Klebsiella pneumoniae [K. pneumoniae] as the cause of diseases classified elsewhere; F41.9 Anxiety disorder, unspecified; Z20.822 Contact with and (suspected) exposure to COVID-19; Z88.0 Allergy status to penicillin; Q82.0 Hereditary lymphedema; Z79.890 Hormone replacement therapy; Z79.899 Other long term (current) drug therapy; Z99.2 Dependence on renal dialysis; Z82.49 Family history of ischemic heart disease and other diseases of the circulatory system; Z83.3 Family history of diabetes mellitus; Z80.9 Family history of malignant neoplasm, unspecified
CPT/HCPCS: 36415; 36430; 71045; 80048; 80053; 80069; 80170; 80202; 82728; 83540; 83550; 83605; 83735; 85025; 86704; 86850; 86900; 86901; 87040; 87070; 87077; 87186; 87205; 87811; 90935; 93005; 93010; 96374; 96375; 97139; G0257; J0692; J1580; J1644; J1756; J2270; J3010; J3370; J3370-JW; J3490; J7050; P9016; U0003; U0005

== ENCOUNTER 2022-03-12 01:01 | Inpatient (IN) | payer MEDICARE, MEDICAID ==
[2022-03-12] MEDS ORDERED: NOREPINEPHRINE 8 MG/250 ML-D5W 250 ML ONE (02:07)
[2022-03-12] MEDS ORDERED: VANCOMYCIN 2 GRAM/500 ML BAG 2 GM in Premix Bag 1 BAG IVPB SCH (02:15)
[2022-03-12] MEDS ORDERED: Midodrine HCl 5 MG TAB PO SCH (02:15)
[2022-03-12] MEDS ORDERED: Cefepime 2 GM in Sodium Chloride 0.9% 100 ML IVPB SCH (02:15)
[2022-03-12] MEDS ORDERED: Fentanyl 100 MCG/2 ML VIAL ONE (02:21)
[2022-03-12] MEDS ORDERED: Ondansetron PF 4 MG/2 ML Vial ONE (02:30)
[2022-03-12] MEDS ORDERED: Midazolam HCl 2 mg/2 ml Vial ONE (02:35)
[2022-03-12 02:41] LABS: #Eosinphils 0.1 thou/uL (0.0-0.7); #Monocytes 0.9 thou/uL (0.11-0.59); #Neutrophils 11.5 thou/uL (1.40-6.50); %Eosinophils 0.5 % (0.0-10.0); %Lymphocytes 7.2 % (21.0-51.0); %Monocytes 6.8 % (0.0-10.0); %Neutrophils 85.5 % (42.0-75.0); Hemoglobin 8.2 g/dL (14.0-18.0); Mean Corpuscular HGB CONC 29.9 g/dL (32.0-36.0); Mean Corpuscular Hemoglobin 30.4 pg (27.0-31.0); Mean Platelet Volume 7.8 fL (7.4-10.4); Platelet Count 254 10x3/uL (130-400); RBC Distribution Width 18.2 % (11.5-14.5); Red Blood Cell (RBC) Count 2.69 mill/uL (4.70-6.10); White Blood Cell (WBC) Count 13.5 10x3/uL (4.8-10.8)
[2022-03-12 02:42] LABS: SARS-CoV-2 NAA Rapid Test Not Detected (NotDetected)
[2022-03-12 02:47] LABS: ALT (SGPT) Less than 7 U/L (8-55); AST (SGOT) 20 U/L (5-34); Albumin 2.8 g/dL (3.5-5.0); Alkaline Phosphatase 71 U/L (40-110); Anion Gap 19 mmol/L (10-20); BUN (Urea Nitrogen) 24 mg/dL (8.9-20.6); Bilirubin, Total 0.6 mg/dL (0.2-1.2); Calc. Creatinine Clearance 0 mL/min (70-130); Calcium 9.1 mg/dL (7.8-10.44); Carbon Dioxide 21 mmol/L (22-29); Chloride 101 mmol/L (98-107); Estimated GFR 14; Globulin 4.4 g/dL (2.4-3.5); Glucose 90 mg/dL (70-105); Lipase 83 U/L (8-78); Protein, Total 7.2 g/dL (6.0-8.3); Sodium 137 mmol/L (136-145)
[2022-03-12 03:09] LABS: CKMB 0.5 ng/mL (0-6.6)
[2022-03-12] MEDS ORDERED: Ondansetron ODT 4 MG TAB PO PRN (04:23)
[2022-03-12] MEDS ORDERED: Ipratropium/Albuterol 3 ML NEB NEB PRN (04:36)
[2022-03-12] MEDS ORDERED: Dextrose 5 %-0.45 % NaCl 1,000 ML IV SCH (04:45)
[2022-03-12] MEDS ORDERED: Morphine 4 MG/ML VIAL ONE (04:53)
[2022-03-12] MEDS ORDERED: Morphine 2 MG/ML VIAL SLOW IVP SCH (05:15)
[2022-03-12] MEDS: Levothyroxine Sodium 125 MCG TAB PO SCH (05:34)
[2022-03-12 05:39] LABS: Glucose 126 mg/dL (70-105)
[2022-03-12 05:40] LABS: Lactic Acid 3.1 mmol/L (0.5-2.2)
[2022-03-12 06:08] LABS: Troponin I 0.166 ng/mL (< 0.028)
[2022-03-12] MEDS: HYDROcodone/Acetaminophen 10/325 mg Tablet PO PRN ×3 (07:50→20:09)
[2022-03-12] MEDS: Sevelamer Carbonate 800 MG TAB PO SCH ×3 (07:52→17:29)
[2022-03-12] MEDS: Midodrine HCl 5 MG TAB PO SCH ×3 (07:54→20:03)
[2022-03-12] MEDS: Folic Acid 1 MG TAB PO SCH (07:54)
[2022-03-12] MEDS: Calcitriol 0.25 MCG CAP PO SCH (07:54)
[2022-03-12] MEDS: Senokot S 8.6-50 MG TAB PO SCH ×2 (07:54→20:02)
[2022-03-12] MEDS: Heparin 5,000 UNITS/ML VIAL SC SCH ×3 (07:55→20:02)
[2022-03-12] MEDS ORDERED: Heparin 10,000 UNITS/ 10 ML VIAL ONE (08:31)
[2022-03-12 09:28] LABS: Actual Bicarbonate (HCO3v) 23 mEq/L (22-28); Base Excess -0.2 mEq/L (-2.0 to +3.0); Calcium, Ionized (venous) 1.03 mmol/L (1.16-1.32); Chloride (VBG) 99 mmol/L (98-106); Hemoglobin (Hb) 9.6 g/dL (13.2-17.3); Potassium (VBG) 3.85 mmol/L (3.70-5.30); pH (venous) 7.45 (7.32-7.43)
[2022-03-12 09:41] LABS: Glucose 133 mg/dL (70-105)
[2022-03-12] MEDS: EPOETIN ALFA-EPBX (ESRD) 10,000 UNIT/ML VIAL SC SCH (09:54)
[2022-03-12] MEDS ORDERED: Epoetin (ESRD) 20,000 UNITS/ML SC SCH (10:45)
[2022-03-12 13:46] LABS: Glucose 111 mg/dL (70-105)
[2022-03-12] MEDS: NOREPINEPHRINE 8 MG/250 ML-D5W 250 ML IVPB SCH (15:30)
[2022-03-12 17:37] LABS: Glucose 119 mg/dL (70-105)
[2022-03-12] MEDS: Lactated Ringer's 1,000 ML IV SCH (17:46)
[2022-03-12] MEDS: Folic Acid/Vit B Comp W-C PO SCH (20:02)
[2022-03-12 20:21] LABS: Glucose 131 mg/dL (70-105)
[2022-03-13] MEDS: HYDROcodone/Acetaminophen 10/325 mg Tablet PO PRN ×4 (00:24→22:09)
[2022-03-13 01:01] LABS: Glucose 133 mg/dL (70-105)
[2022-03-13] MEDS: NOREPINEPHRINE 8 MG/250 ML-D5W 250 ML IVPB SCH ×2 (01:47→12:43)
[2022-03-13] MEDS: Lactated Ringer's 1,000 ML IV SCH ×3 (01:48→18:54)
[2022-03-13] MEDS ORDERED: Fentanyl 100 MCG/2 ML VIAL SLOW IVP SCH (02:30)
[2022-03-13] MEDS ORDERED: Cefepime 1 GM in Sodium Chloride 0.9% 100 ML IVPB SCH (04:00)
[2022-03-13] MEDS ORDERED: Cefepime 0.5 GM, Admixture Fee 1 EACH in Sodium Chloride 0.9% 100 ML IVPB SCH (04:00)
[2022-03-13 04:33] LABS: #Eosinphils 0.2 thou/uL (0.0-0.7); #Lymphocytes 0.9 thou/uL (1.20-3.40); #Monocytes 0.8 thou/uL (0.11-0.59); #Neutrophils 11.9 thou/uL (1.40-6.50); %Eosinophils 1.5 % (0.0-10.0); %Lymphocytes 6.4 % (21.0-51.0); %Monocytes 6.1 % (0.0-10.0); Hemoglobin 8.2 g/dL (14.0-18.0); Mean Corpuscular HGB CONC 29.6 g/dL (32.0-36.0); Mean Corpuscular Hemoglobin 29.9 pg (27.0-31.0); Mean Platelet Volume 7.9 fL (7.4-10.4); Platelet Count 281 10x3/uL (130-400); RBC Distribution Width 17.6 % (11.5-14.5); Red Blood Cell (RBC) Count 2.74 mill/uL (4.70-6.10); White Blood Cell (WBC) Count 13.8 10x3/uL (4.8-10.8)
[2022-03-13 04:51] LABS: Anion Gap 15 mmol/L (10-20); BUN (Urea Nitrogen) 23 mg/dL (8.9-20.6); Calc. Creatinine Clearance 51 mL/min (70-130); Calcium 9.2 mg/dL (7.8-10.44); Carbon Dioxide 26 mmol/L (22-29); Chloride 98 mmol/L (98-107); Estimated GFR 13; Glucose 125 mg/dL (70-105); Potassium 3.9 mmol/L (3.5-5.1); Sodium 135 mmol/L (136-145)
[2022-03-13] MEDS: Levothyroxine Sodium 125 MCG TAB PO SCH (05:22)
[2022-03-13] MEDS: Heparin 5,000 UNITS/ML VIAL SC SCH ×3 (08:48→21:51)
[2022-03-13] MEDS: Sevelamer Carbonate 800 MG TAB PO SCH ×4 (08:48→19:20)
[2022-03-13] MEDS: Calcitriol 0.25 MCG CAP PO SCH (08:48)
[2022-03-13] MEDS: Folic Acid 1 MG TAB PO SCH (08:49)
[2022-03-13] MEDS: Midodrine HCl 5 MG TAB PO SCH ×3 (08:49→21:51)
[2022-03-13] MEDS: Senokot S 8.6-50 MG TAB PO SCH ×2 (09:02→21:51)
[2022-03-13] MEDS ORDERED: Lactated Ringer's 500 ML IV SCH (10:45)
[2022-03-13] MEDS ORDERED: Albumin 25% 25 GM/100 ML BOT IVPB SCH (10:45)
[2022-03-13] MEDS: Folic Acid/Vit B Comp W-C PO SCH (21:51)
[2022-03-14] MEDS: NOREPINEPHRINE 8 MG/250 ML-D5W 250 ML IVPB SCH (04:21)
[2022-03-14 04:37] LABS: #Eosinphils 0.2 thou/uL (0.0-0.7); #Monocytes 0.9 thou/uL (0.11-0.59); #Neutrophils 14.1 thou/uL (1.40-6.50); %Basophils 0.3 % (0.0-1.0); %Eosinophils 1.4 % (0.0-10.0); %Lymphocytes 5.9 % (21.0-51.0); %Monocytes 5.4 % (0.0-10.0); Mean Corpuscular HGB CONC 31.6 g/dL (32.0-36.0); Mean Corpuscular Hemoglobin 32.1 pg (27.0-31.0); Platelet Count 236 10x3/uL (130-400); RBC Distribution Width 17.7 % (11.5-14.5); Red Blood Cell (RBC) Count 2.49 mill/uL (4.70-6.10); White Blood Cell (WBC) Count 16.2 10x3/uL (4.8-10.8)
[2022-03-14 04:54] LABS: Vancomycin, Random 11.3 ug/mL (See Comment)
[2022-03-14 04:59] LABS: Anion Gap 15 mmol/L (10-20); BUN (Urea Nitrogen) 28 mg/dL (8.9-20.6); Calc. Creatinine Clearance 47 mL/min (70-130); Calcium 9.3 mg/dL (7.8-10.44); Carbon Dioxide 23 mmol/L (22-29); Chloride 98 mmol/L (98-107); Estimated GFR 12; Glucose 113 mg/dL (70-105); Potassium 4.2 mmol/L (3.5-5.1); Sodium 132 mmol/L (136-145)
[2022-03-14] MEDS: Levothyroxine Sodium 125 MCG TAB PO SCH (05:29)
[2022-03-14] MEDS: HYDROcodone/Acetaminophen 10/325 mg Tablet PO PRN ×2 (06:45→22:18)
[2022-03-14] MEDS ORDERED: Vancomycin Sliding Scale 1 EACH IVPB SCH (07:30)
[2022-03-14] MEDS: Midodrine HCl 5 MG TAB PO SCH ×3 (08:33→21:22)
[2022-03-14] MEDS: Sevelamer Carbonate 800 MG TAB PO SCH ×3 (08:33→16:24)
[2022-03-14] MEDS: Calcitriol 0.25 MCG CAP PO SCH (08:33)
[2022-03-14] MEDS: Heparin 5,000 UNITS/ML VIAL SC SCH ×3 (08:34→21:22)
[2022-03-14] MEDS: Folic Acid 1 MG TAB PO SCH (08:34)
[2022-03-14] MEDS: Senokot S 8.6-50 MG TAB PO SCH ×2 (08:35→22:21)
[2022-03-14] MEDS ORDERED: Cefpodoxime 200 MG TAB PO SCH (09:00)
[2022-03-14] MEDS ORDERED: Albumin 25% 25 GM/100 ML BOT IVPB SCH (09:00)
[2022-03-14] MEDS ORDERED: Lactated Ringer's 500 ML IV SCH ×2 (10:00→11:45)
[2022-03-14] MEDS ORDERED: Meropenem 1 GM in Sodium Chloride 0.9% 100 ML IVPB SCH (10:15)
[2022-03-14] MEDS: Hydrocortisone Sod Succ/PF 100 mg/2 ml Vial IVP SCH ×3 (10:38→21:21)
[2022-03-14] MEDS: Lactated Ringer's 1,000 ML IV SCH (14:29)
[2022-03-14] MEDS: Meropenem 500 MG in Sodium Chloride 0.9% 100 ML IVPB SCH (16:28)
[2022-03-14] MEDS ORDERED: Cefepime 0.5 GM, Admixture Fee 1 EACH in Sodium Chloride 0.9% 100 ML IVPB SCH (17:00)
[2022-03-14] MEDS ORDERED: VANCOMYCIN 1.25 GM/250 ML BAG 1.25 GM in Premix Bag 1 BAG IVPB SCH (17:00)
[2022-03-14] MEDS: Albumin 25% 25 GM/100 ML BOT IVPB SCH (21:21)
[2022-03-14] MEDS: Folic Acid/Vit B Comp W-C PO SCH (21:22)
[2022-03-15] MEDS: Hydrocortisone Sod Succ/PF 100 mg/2 ml Vial IVP SCH (04:33)
[2022-03-15] MEDS: Levothyroxine Sodium 125 MCG TAB PO SCH (05:18)
[2022-03-15 05:35] LABS: Hemoglobin 6.9 g/dL (14.0-18.0); Mean Corpuscular HGB CONC 29.2 g/dL (32.0-36.0); Mean Corpuscular Hemoglobin 29.3 pg (27.0-31.0); Mean Platelet Volume 8.1 fL (7.4-10.4); Platelet Count 205 10x3/uL (130-400); RBC Distribution Width 17.8 % (11.5-14.5); Red Blood Cell (RBC) Count 2.34 mill/uL (4.70-6.10); White Blood Cell (WBC) Count 14.7 10x3/uL (4.8-10.8)
[2022-03-15 05:48] LABS: Anion Gap 15 mmol/L (10-20); BUN (Urea Nitrogen) 32 mg/dL (8.9-20.6); Calc. Creatinine Clearance 43 mL/min (70-130); Calcium 9.2 mg/dL (7.8-10.44); Carbon Dioxide 26 mmol/L (22-29); Chloride 97 mmol/L (98-107); Estimated GFR 10; Glucose 128 mg/dL (70-105); Potassium 4.4 mmol/L (3.5-5.1); Sodium 134 mmol/L (136-145)
[2022-03-15 06:01] LABS: #Lymphocytes 0.6 thou/uL (1.20-3.40); #Monocytes 0.6 thou/uL (0.11-0.59); #Neutrophils 13.5 thou/uL (1.40-6.50); %Basophils 0.1 % (0.0-1.0); %Eosinophils 0.2 % (0.0-10.0); %Lymphocytes 4.2 % (21.0-51.0); %Neutrophils 91.5 % (42.0-75.0)
[2022-03-15 06:54] LABS: #Lymphocytes 0.6 thou/uL (1.20-3.40); #Monocytes 0.6 thou/uL (0.11-0.59); #Neutrophils 12.9 thou/uL (1.40-6.50); %Eosinophils 0.2 % (0.0-10.0); %Lymphocytes 4.5 % (21.0-51.0); %Monocytes 3.9 % (0.0-10.0); %Neutrophils 91.5 % (42.0-75.0); Hemoglobin 7.1 g/dL (14.0-18.0); Mean Corpuscular HGB CONC 30.6 g/dL (32.0-36.0); Mean Corpuscular Hemoglobin 30.7 pg (27.0-31.0); Mean Platelet Volume 8.2 fL (7.4-10.4); Platelet Count 213 10x3/uL (130-400); RBC Distribution Width 17.8 % (11.5-14.5); Red Blood Cell (RBC) Count 2.33 mill/uL (4.70-6.10); White Blood Cell (WBC) Count 14.1 10x3/uL (4.8-10.8)
[2022-03-15] MEDS: Sevelamer Carbonate 800 MG TAB PO SCH ×3 (07:57→16:31)
[2022-03-15] MEDS: HYDROcodone/Acetaminophen 10/325 mg Tablet PO PRN ×2 (07:57→20:29)
[2022-03-15] MEDS ORDERED: Heparin 10,000 UNITS/ 10 ML VIAL ONE (08:31)
[2022-03-15] MEDS ORDERED: FLU VACC QS2022-23(6MOS UP)/PF 60 MCG/0.5 ML SYRINGE IM ONE (09:00)
[2022-03-15] MEDS ORDERED: Albumin 25% 25 GM/100 ML BOT IVPB SCH (09:00)
[2022-03-15] MEDS: Albumin 25% 25 GM/100 ML BOT IVPB SCH ×2 (09:19→20:33)
[2022-03-15] MEDS: Calcitriol 0.25 MCG CAP PO SCH (09:20)
[2022-03-15] MEDS: Midodrine HCl 5 MG TAB PO SCH ×3 (09:20→20:32)
[2022-03-15] MEDS: Folic Acid 1 MG TAB PO SCH (09:21)
[2022-03-15] MEDS: Senokot S 8.6-50 MG TAB PO SCH ×2 (09:21→21:17)
[2022-03-15] MEDS: Heparin 5,000 UNITS/ML VIAL SC SCH ×3 (09:21→20:36)
[2022-03-15] MEDS: predniSONE 20 MG TAB PO SCH (09:33)
[2022-03-15] MEDS: Meropenem 500 MG in Sodium Chloride 0.9% 100 ML IVPB SCH (16:31)
[2022-03-15] MEDS: Lactated Ringer's 1,000 ML IV SCH (18:10)
[2022-03-15] MEDS: Folic Acid/Vit B Comp W-C PO SCH (20:33)
[2022-03-16] MEDS: HYDROcodone/Acetaminophen 10/325 mg Tablet PO PRN ×3 (03:08→11:55)
[2022-03-16] MEDS: Levothyroxine Sodium 125 MCG TAB PO SCH (05:53)
[2022-03-16 07:36] LABS: #Lymphocytes 0.6 thou/uL (1.20-3.40); #Monocytes 0.7 thou/uL (0.11-0.59); #Neutrophils 12.7 thou/uL (1.40-6.50); %Basophils 0.1 % (0.0-1.0); %Eosinophils 0.2 % (0.0-10.0); %Neutrophils 90.7 % (42.0-75.0); Hemoglobin 7.7 g/dL (14.0-18.0); Mean Corpuscular HGB CONC 30.9 g/dL (32.0-36.0); Mean Corpuscular Hemoglobin 30.2 pg (27.0-31.0); Mean Corpuscular Volume 97.7 fl (78.0-98.0); Platelet Count 208 10x3/uL (130-400); RBC Distribution Width 17.3 % (11.5-14.5); Red Blood Cell (RBC) Count 2.56 mill/uL (4.70-6.10); White Blood Cell (WBC) Count 14.1 10x3/uL (4.8-10.8)
[2022-03-16 07:51] LABS: Vancomycin, Random 14.6 ug/mL (See Comment)
[2022-03-16 07:53] LABS: Anion Gap 16 mmol/L (10-20); BUN (Urea Nitrogen) 37 mg/dL (8.9-20.6); Calc. Creatinine Clearance 44 mL/min (70-130); Calcium 9.5 mg/dL (7.8-10.44); Carbon Dioxide 25 mmol/L (22-29); Chloride 98 mmol/L (98-107); Estimated GFR 11; Glucose 122 mg/dL (70-105); Potassium 4.3 mmol/L (3.5-5.1); Sodium 135 mmol/L (136-145)
[2022-03-16] MEDS: Midodrine HCl 5 MG TAB PO SCH ×3 (08:07→20:25)
[2022-03-16] MEDS: Folic Acid 1 MG TAB PO SCH (08:07)
[2022-03-16] MEDS: predniSONE 20 MG TAB PO SCH (08:07)
[2022-03-16] MEDS: Heparin 5,000 UNITS/ML VIAL SC SCH ×3 (08:07→20:25)
[2022-03-16] MEDS: Albumin 25% 25 GM/100 ML BOT IVPB SCH ×2 (08:08→20:24)
[2022-03-16] MEDS: Sevelamer Carbonate 800 MG TAB PO SCH ×3 (08:08→17:05)
[2022-03-16] MEDS: Calcitriol 0.25 MCG CAP PO SCH (08:08)
[2022-03-16] MEDS: Senokot S 8.6-50 MG TAB PO SCH ×2 (08:12→20:30)
[2022-03-16] MEDS: Doxycycline 100 MG CAP PO SCH ×2 (09:57→20:25)
[2022-03-16] MEDS: Lactated Ringer's 1,000 ML IV SCH (12:51)
[2022-03-16] MEDS: Folic Acid/Vit B Comp W-C PO SCH (20:25)
[2022-03-17] MEDS: Levothyroxine Sodium 125 MCG TAB PO SCH (05:25)
[2022-03-17] MEDS ORDERED: Heparin 10,000 UNITS/ 10 ML VIAL ONE (08:20)
[2022-03-17] MEDS: Sevelamer Carbonate 800 MG TAB PO SCH ×3 (09:13→17:23)
[2022-03-17] MEDS: Midodrine HCl 5 MG TAB PO SCH ×3 (09:13→20:20)
[2022-03-17] MEDS: Heparin 5,000 UNITS/ML VIAL SC SCH ×3 (11:27→20:20)
[2022-03-17] MEDS: Senokot S 8.6-50 MG TAB PO SCH ×2 (11:28→20:19)
[2022-03-17] MEDS: predniSONE 20 MG TAB PO SCH (14:39)
[2022-03-17] MEDS: Calcitriol 0.25 MCG CAP PO SCH (14:39)
[2022-03-17] MEDS: Doxycycline 100 MG CAP PO SCH ×2 (14:39→20:20)
[2022-03-17] MEDS: Folic Acid 1 MG TAB PO SCH (14:39)
[2022-03-17] MEDS: Lactated Ringer's 1,000 ML IV SCH (16:44)
[2022-03-17] MEDS: Folic Acid/Vit B Comp W-C PO SCH (20:20)
[2022-03-17] MEDS: HYDROcodone/Acetaminophen 10/325 mg Tablet PO PRN (23:56)
[2022-03-18] MEDS: Lactated Ringer's 1,000 ML IV SCH (05:31)
[2022-03-18] MEDS: Levothyroxine Sodium 125 MCG TAB PO SCH (05:55)
[2022-03-18] MEDS: Midodrine HCl 5 MG TAB PO SCH ×3 (09:05→20:23)
[2022-03-18] MEDS: Sevelamer Carbonate 800 MG TAB PO SCH ×4 (09:05→16:58)
[2022-03-18 11:58] LABS: #Eosinphils 0.1 thou/uL (0.0-0.7); #Lymphocytes 0.7 thou/uL (1.20-3.40); #Monocytes 0.8 thou/uL (0.11-0.59); #Neutrophils 11.3 thou/uL (1.40-6.50); %Eosinophils 0.5 % (0.0-10.0); %Lymphocytes 5.7 % (21.0-51.0); %Monocytes 6.5 % (0.0-10.0); %Neutrophils 87.4 % (42.0-75.0); Hemoglobin 8.7 g/dL (14.0-18.0); Mean Corpuscular HGB CONC 30.8 g/dL (32.0-36.0); Mean Corpuscular Hemoglobin 30.3 pg (27.0-31.0); Mean Corpuscular Volume 98.4 fl (78.0-98.0); Mean Platelet Volume 7.9 fL (7.4-10.4); Platelet Count 223 10x3/uL (130-400); Red Blood Cell (RBC) Count 2.87 mill/uL (4.70-6.10); White Blood Cell (WBC) Count 12.9 10x3/uL (4.8-10.8)
[2022-03-18 12:18] LABS: Anion Gap 14 mmol/L (10-20); BUN (Urea Nitrogen) 37 mg/dL (8.9-20.6); Calc. Creatinine Clearance 55 mL/min (70-130); Calcium 9.2 mg/dL (7.8-10.44); Carbon Dioxide 27 mmol/L (22-29); Chloride 98 mmol/L (98-107); Estimated GFR 14; Glucose 108 mg/dL (70-105); Potassium 3.6 mmol/L (3.5-5.1); Sodium 135 mmol/L (136-145)
[2022-03-18] MEDS ORDERED: Heparin 10,000 UNITS/ 10 ML VIAL ONE (13:53)
[2022-03-18] MEDS: Doxycycline 100 MG CAP PO SCH ×2 (14:19→20:23)
[2022-03-18] MEDS: Senokot S 8.6-50 MG TAB PO SCH ×2 (14:20→20:22)
[2022-03-18] MEDS: Heparin 5,000 UNITS/ML VIAL SC SCH ×3 (14:20→20:22)
[2022-03-18] MEDS: predniSONE 20 MG TAB PO SCH (14:24)
[2022-03-18] MEDS: Calcitriol 0.25 MCG CAP PO SCH (14:24)
[2022-03-18] MEDS: Folic Acid 1 MG TAB PO SCH (14:24)
[2022-03-18] MEDS: Folic Acid/Vit B Comp W-C PO SCH (20:23)
[2022-03-19] MEDS: Levothyroxine Sodium 125 MCG TAB PO SCH (04:58)
[2022-03-19 08:34] LABS: #Lymphocytes 0.6 thou/uL (1.20-3.40); #Monocytes 0.7 thou/uL (0.11-0.59); #Neutrophils 10.9 thou/uL (1.40-6.50); %Basophils 0.1 % (0.0-1.0); %Eosinophils 0.3 % (0.0-10.0); %Lymphocytes 5.2 % (21.0-51.0); %Monocytes 5.6 % (0.0-10.0); %Neutrophils 88.8 % (42.0-75.0); Hemoglobin 8.3 g/dL (14.0-18.0); Mean Corpuscular HGB CONC 30.3 g/dL (32.0-36.0); Mean Corpuscular Volume 98.9 fl (78.0-98.0); Mean Platelet Volume 8.4 fL (7.4-10.4); Platelet Count 205 10x3/uL (130-400); RBC Distribution Width 18.1 % (11.5-14.5); Red Blood Cell (RBC) Count 2.76 mill/uL (4.70-6.10); White Blood Cell (WBC) Count 12.3 10x3/uL (4.8-10.8)
[2022-03-19 08:45] LABS: Anion Gap 17 mmol/L (10-20); BUN (Urea Nitrogen) 49 mg/dL (8.9-20.6); Calc. Creatinine Clearance 46 mL/min (70-130); Carbon Dioxide 25 mmol/L (22-29); Chloride 99 mmol/L (98-107); Estimated GFR 11; Glucose 109 mg/dL (70-105); Potassium 4.5 mmol/L (3.5-5.1); Sodium 136 mmol/L (136-145)
[2022-03-19] MEDS: Midodrine HCl 5 MG TAB PO SCH ×3 (11:08→21:05)
[2022-03-19] MEDS: predniSONE 20 MG TAB PO SCH (11:08)
[2022-03-19] MEDS: Folic Acid 1 MG TAB PO SCH (11:08)
[2022-03-19] MEDS: Doxycycline 100 MG CAP PO SCH ×2 (11:08→21:05)
[2022-03-19] MEDS: Calcitriol 0.25 MCG CAP PO SCH (11:08)
[2022-03-19] MEDS: Sevelamer Carbonate 800 MG TAB PO SCH ×3 (11:08→18:44)
[2022-03-19] MEDS: Senokot S 8.6-50 MG TAB PO SCH ×2 (11:09→21:06)
[2022-03-19] MEDS: Heparin 5,000 UNITS/ML VIAL SC SCH ×3 (11:09→21:08)
[2022-03-19] MEDS: HYDROcodone/Acetaminophen 10/325 mg Tablet PO PRN ×2 (11:12→21:06)
[2022-03-19] MEDS: EPOETIN ALFA-EPBX (ESRD) 10,000 UNIT/ML VIAL SC SCH ×2 (11:12→11:15)
[2022-03-19] MEDS ORDERED: Loperamide HCl 2 MG CAP PO PRN (13:46)
[2022-03-19 17:26] VITALS: BMI 64.3
[2022-03-19] MEDS: Folic Acid/Vit B Comp W-C PO SCH (21:05)
[2022-03-20] MEDS: Levothyroxine Sodium 125 MCG TAB PO SCH (05:22)
[2022-03-20] MEDS: Midodrine HCl 5 MG TAB PO SCH ×3 (08:54→23:11)
[2022-03-20] MEDS: Doxycycline 100 MG CAP PO SCH ×2 (09:01→23:12)
[2022-03-20] MEDS: Heparin 5,000 UNITS/ML VIAL SC SCH ×3 (09:01→23:12)
[2022-03-20] MEDS: Sevelamer Carbonate 800 MG TAB PO SCH ×3 (09:01→17:29)
[2022-03-20] MEDS: Calcitriol 0.25 MCG CAP PO SCH (09:01)
[2022-03-20] MEDS: Senokot S 8.6-50 MG TAB PO SCH ×2 (09:01→23:57)
[2022-03-20] MEDS: Folic Acid 1 MG TAB PO SCH (09:01)
[2022-03-20] MEDS ORDERED: Heparin 10,000 UNITS/ 10 ML VIAL ONE (13:57)
[2022-03-20] MEDS: Folic Acid/Vit B Comp W-C PO SCH (23:12)
[2022-03-21] MEDS: Levothyroxine Sodium 125 MCG TAB PO SCH (05:55)
[2022-03-21] MEDS: Calcitriol 0.25 MCG CAP PO SCH (08:43)
[2022-03-21] MEDS: Sevelamer Carbonate 800 MG TAB PO SCH ×3 (08:43→14:18)
[2022-03-21] MEDS: Heparin 5,000 UNITS/ML VIAL SC SCH ×3 (08:44→20:34)
[2022-03-21] MEDS: Folic Acid 1 MG TAB PO SCH (08:44)
[2022-03-21] MEDS: Senokot S 8.6-50 MG TAB PO SCH ×2 (08:44→20:34)
[2022-03-21] MEDS: Midodrine HCl 5 MG TAB PO SCH ×3 (08:44→20:33)
[2022-03-21] MEDS ORDERED: Heparin 10,000 UNITS/ 10 ML VIAL ONE (10:07)
[2022-03-21] MEDS: Doxycycline 100 MG CAP PO SCH (14:37)
[2022-03-21] MEDS: Folic Acid/Vit B Comp W-C PO SCH (20:33)
[2022-03-22] MEDS: Levothyroxine Sodium 125 MCG TAB PO SCH (05:53)
[2022-03-22] MEDS: HYDROcodone/Acetaminophen 10/325 mg Tablet PO PRN (05:55)
[2022-03-22 07:10] LABS: #Eosinphils 0.2 thou/uL (0.0-0.7); #Lymphocytes 0.4 thou/uL (1.20-3.40); #Monocytes 0.7 thou/uL (0.11-0.59); #Neutrophils 7.6 thou/uL (1.40-6.50); %Eosinophils 2.3 % (0.0-10.0); %Lymphocytes 4.7 % (21.0-51.0); %Monocytes 7.3 % (0.0-10.0); %Neutrophils 85.7 % (42.0-75.0); Hemoglobin 8.9 g/dL (14.0-18.0); Mean Corpuscular HGB CONC 30.7 g/dL (32.0-36.0); Mean Corpuscular Hemoglobin 30.4 pg (27.0-31.0); Mean Corpuscular Volume 99.1 fl (78.0-98.0); Mean Platelet Volume 7.7 fL (7.4-10.4); Platelet Count 237 10x3/uL (130-400); Red Blood Cell (RBC) Count 2.92 mill/uL (4.70-6.10); White Blood Cell (WBC) Count 8.9 10x3/uL (4.8-10.8)
[2022-03-22 07:20] LABS: Anion Gap 16 mmol/L (10-20); BUN (Urea Nitrogen) 46 mg/dL (8.9-20.6); Calc. Creatinine Clearance 54 mL/min (70-130); Calcium 9.2 mg/dL (7.8-10.44); Carbon Dioxide 25 mmol/L (22-29); Chloride 99 mmol/L (98-107); Estimated GFR 13; Glucose 96 mg/dL (70-105); Potassium 4.5 mmol/L (3.5-5.1); Sodium 135 mmol/L (136-145)
[2022-03-22] MEDS: Heparin 5,000 UNITS/ML VIAL SC SCH ×3 (08:16→21:19)
[2022-03-22] MEDS: Sevelamer Carbonate 800 MG TAB PO SCH ×3 (08:16→15:42)
[2022-03-22] MEDS: Senokot S 8.6-50 MG TAB PO SCH ×2 (08:16→21:10)
[2022-03-22] MEDS ORDERED: Heparin 10,000 UNITS/ 10 ML VIAL ONE (08:31)
[2022-03-22] MEDS: Calcitriol 0.25 MCG CAP PO SCH (09:16)
[2022-03-22] MEDS: Folic Acid 1 MG TAB PO SCH (09:17)
[2022-03-22] MEDS: Midodrine HCl 5 MG TAB PO SCH ×3 (09:17→21:10)
[2022-03-22] MEDS ORDERED: HYDROcodone/Acetaminophen 10/325 mg Tablet PO PRN (20:44)
[2022-03-22] MEDS: Folic Acid/Vit B Comp W-C PO SCH (21:10)
[2022-03-22] MEDS ORDERED: Lidocaine 5% Patch TD SCH (22:00)
[2022-03-23] MEDS: Levothyroxine Sodium 125 MCG TAB PO SCH (05:48)
[2022-03-23 08:33] VITALS: BP 94/49; TEMP 98
[2022-03-23] MEDS: Midodrine HCl 5 MG TAB PO SCH ×2 (08:40→15:05)
[2022-03-23] MEDS: Calcitriol 0.25 MCG CAP PO SCH (08:44)
[2022-03-23] MEDS: Sevelamer Carbonate 800 MG TAB PO SCH ×2 (08:44→13:22)
[2022-03-23] MEDS: Senokot S 8.6-50 MG TAB PO SCH (08:45)
[2022-03-23] MEDS: Folic Acid 1 MG TAB PO SCH (08:45)
[2022-03-23] MEDS: Heparin 5,000 UNITS/ML VIAL SC SCH ×2 (08:45→16:42)
[2022-03-23] MEDS ORDERED: Transdermal Patch Removal TOP SCH ×2 (09:00→10:00)
[2022-03-23] MEDS ORDERED: Heparin 10,000 UNITS/ 10 ML VIAL ONE (11:11)
[2022-03-23] MEDS ORDERED: Albumin 25% 25 GM/100 ML BOT IVPB SCH (11:45)
[2022-03-23] MEDS ORDERED: Lidocaine 5% Patch TD SCH (21:00)
== END 2022-03-23 17:15 | disposition home or self-care (01) | DRG 871 ==
LOC: ERS 01:01 → CCU 03:31 → T4-B 03-16 21:54
PROVIDERS: ADMIT Student in an Organized Health Care Education/Training Program; ATTEND Family Medicine
PROC: 05HY33Z Insertion of Infusion Device into Upper Vein, Percutaneous Approach (ICD-10-PCS; principal; 2022-03-12)
PROC: 3E03329 Introduction of Other Anti-infective into Peripheral Vein, Percutaneous Approach (ICD-10-PCS; 2022-03-12)
PROC: 3E043XZ Introduction of Vasopressor into Central Vein, Percutaneous Approach (ICD-10-PCS; 2022-03-12)
PROC: 30233N1 Transfusion of Nonautologous Red Blood Cells into Peripheral Vein, Percutaneous Approach (ICD-10-PCS; 2022-03-15)
PROC: 5A1D70Z Performance of Urinary Filtration, Intermittent, Less than 6 Hours Per Day (ICD-10-PCS; 2022-03-20)
DX: A41.9 Sepsis, unspecified organism (principal); G93.41 Metabolic encephalopathy; J96.01 Acute respiratory failure with hypoxia; N18.6 End stage renal disease; R65.21 Severe sepsis with septic shock; R57.8 Other shock; I50.32 Chronic diastolic (congestive) heart failure; I31.39 Other pericardial effusion (noninflammatory); Z68.44 Body mass index [BMI] 60.0-69.9, adult; L97.912 Non-pressure chronic ulcer of unspecified part of right lower leg with fat layer exposed; L97.922 Non-pressure chronic ulcer of unspecified part of left lower leg with fat layer exposed; L03.119 Cellulitis of unspecified part of limb; Z20.822 Contact with and (suspected) exposure to COVID-19; R79.89 Other specified abnormal findings of blood chemistry; E03.9 Hypothyroidism, unspecified; K21.9 Gastro-esophageal reflux disease without esophagitis; R53.81 Other malaise; D63.1 Anemia in chronic kidney disease; E66.01 Morbid (severe) obesity due to excess calories; Z99.2 Dependence on renal dialysis; Z88.0 Allergy status to penicillin; Z79.890 Hormone replacement therapy; Z79.899 Other long term (current) drug therapy; Q82.0 Hereditary lymphedema
CPT/HCPCS: 36415; 36416; 36430; 36556; 71045; 80048; 80053; 80202; 82553; 82805; 82947; 83605; 83690; 84484; 85025; 86850; 86900; 86901; 87040; 87811; 90935; 93005; 93306; 94760; 96374; 96375; 97139; G0257; J0692; J1644; J1720; J2185; J2250; J2270; J2405; J3010; J3370; J3490; J7042; J7120; J7512; P9016; P9047; Q0162; Q5105